=== PATIENT | female | born 1995 | race Caucasian/White ===

== ENCOUNTER 2018-03-06 15:17 | Emergency (ER) | payer OTHER ==
[~2018-03-06] VITALS: Ht 165.1 cm; Wt 68.0 kg
--- NOTE | 2018-03-06 16:07 | RAD ---
EXAM: Right knee, 3 views. HISTORY: Pain. COMPARISON: None. FINDINGS: Real views of the right knee are obtained. There is no fracture, dislocation or subluxation. There is no joint effusion. IMPRESSION: No acute osseous finding. Electronically signed by: Nivia Mohan MD (03/06/2018 4:03 PM) [facility]
--- NOTE | 2018-03-06 16:36 | PHYS DOC ---
Past History Past Medical History: Endometriosis Past Surgical History: No Surgical History Alcohol Use: Occasionally Drug Use: None Adult General Chief Complaint Chief Complaint: LOWER EXT PAIN HPI HPI 22-year-old female presents with right knee pain and concern for STD. 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 While she was there she had a tibial plateau hairline fracture. Since being assigned to the local [employer], she has had pain in the right knee and distal thigh. The pain is a 2/10 before physical training, but gets up to an 8/10 after running. She denies any new injuries. She has been taking ibuprofen 800 for the pain. The patient was told by her spouse that her spouse thought she might have an STD. She would like the patient to be tested as well. The patient has not had an STD in the past. She has never been . She denies fever or chills. She is currently on her menses. The patient has had a change in her vaginal odor and discharge. There is a thicker grayish color. Review of Systems Review of Systems Constitutional: Denies fever or chills [] Eyes: Denies change in visual acuity, redness, or eye pain [] HENT: Denies nasal congestion or sore throat [] Respiratory: Denies cough or shortness of breath [] Cardiovascular: No additional information not addressed in HPI [] GI: Denies abdominal pain, nausea, vomiting, bloody stools or diarrhea [] : Vaginal discharge[] Musculoskeletal: Denies back pain or joint pain [] Integument: Denies rash or skin lesions [] Neurologic: Denies headache, focal weakness or sensory changes [] Endocrine: Denies polyuria or polydipsia [] All other systems were reviewed and found to be within normal limits, except as documented in this note. Current Medications Current Medications Current Medications Medications (Trade) Dose Ordered Sig/Colt Start Time Stop Time Status Last Admin Dose Admin Azithromycin (Zithromax) 1,000 mg 1X ONCE 03/06/18 17:00 03/06/18 17:01 Ceftriaxone Sodium (Rocephin Im) 250 mg 1X ONCE 03/06/18 17:00 03/06/18 17:01 Allergies Allergies Allergies Coded Allergies Type Severity Reaction Last Updated Verified No Known Drug Allergies 03/06/18 No Physical Exam Physical Exam Constitutional: Well developed, well nourished, no acute distress, non-toxic appearance. [] HENT: Normocephalic, atraumatic, bilateral external ears normal, oropharynx moist, no oral exudates, nose normal. [] Eyes: PERRLA, EOMI, conjunctiva normal, no discharge. [] Neck: Normal range of motion, no tenderness, supple, no stridor. [] Cardiovascular:Heart rate regular rhythm, no murmur [] Lungs & Thorax: Bilateral breath sounds clear to auscultation [] Abdomen: Bowel sounds normal, soft, no tenderness, no masses, no pulsatile masses. [] Skin: Warm, dry, no erythema, no rash. [] Back: No tenderness, no CVA tenderness. [] Extremities: No tenderness, no cyanosis, no clubbing, ROM intact, no edema. [] Neurologic: Alert and oriented X 3, normal motor function, normal sensory function, no focal deficits noted. [] Psychologic: Affect normal, judgement normal, mood normal. : shaved pubic hair, normal external exam, thick white to siegel discharge mixed with blood, erythematous cervix.[] Current Patient Data Vital Signs Vital Signs Date Time Temp Pulse Resp B/P (MAP) Pulse Ox O2 Delivery O2 Flow Rate FiO2 03/06/18 15:54 98.8 88 18 100 Room Air EKG EKG [] Radiology/Procedures Radiology/Procedures [] Impressions: EXAM: Right knee, 3 views. HISTORY: Pain. COMPARISON: None. FINDINGS: Real views of the right knee are obtained. There is no fracture, dislocation or subluxation. There is no joint effusion. IMPRESSION: No acute osseous finding. Electronically signed by: Nivia Huerta MD (03/06/2018 4:03 PM) [facility] DICTATED AND SIGNED BY: NIVIA HUERTA MD DATE: 03/06/18 1603 CC: ROMEL PATTON DO; LIDA KIDD DO Course & Med Decision Making Course & Med Decision Making Pertinent Labs and Imaging studies reviewed. (See chart for details) The patient has been treated for chlamydia and gonorrhea with azithromycin and ceftriaxone. The results are pending. Wet prep was negative. Her right knee x- ray is negative. I have advised that she follow-up with her physicians if it continues to have pain. She is stable for discharge at this time [] Dragon Disclaimer Dragon Disclaimer This electronic medical record was generated, in whole or in part, using a voice recognition dictation system. Departure Departure: Referrals: ROMEL PATTON DO (PCP) LIDA KIDD DO Mar 06, 2018 16:36
[2018-03-06 16:43] VITALS: BP 132/90
[2018-03-06] MEDS ORDERED: AZITHROMYCIN 250 MG TABLET. PO ONE (17:00)
[2018-03-06] MEDS ORDERED: cefTRIAXone IM 250 MG VIAL IM ONE (17:00)
[2018-03-07 15:09] LABS: CHLAMYDIA PROBE Negative (Negative)
== END 2018-03-06 17:20 | disposition home or self-care (01) ==
LOC: ER 15:17
DX: A54.03 Gonococcal cervicitis, unspecified (principal); A56.02 Chlamydial vulvovaginitis; M25.561 Pain in right knee
CPT/HCPCS: 36415; 73564; 87491; 87591; 96372; 99285; J0456; J0696; Q0111

== ENCOUNTER 2018-04-05 19:26 | Emergency (ER) | payer OTHER ==
[~2018-04-05] VITALS: Ht 165.1 cm; Wt 68.0 kg
[2018-04-05] MEDS ORDERED: IV NORMAL SALINE 1,000ML 1,000 ML IV ONE (19:45)
--- NOTE | 2018-04-05 19:54 | PHYS DOC ---
Past History Past Medical History: Endometriosis, Other Past Surgical History: Oophorectomy, Other Alcohol Use: Occasionally Drug Use: None Adult General Chief Complaint Chief Complaint: PELVIC PAIN HPI HPI 22-year-old female presents with right lower quadrant abdominal pain. Patient states that the pain started rather suddenly yesterday. She thought that it would go away overnight, but the pain continues today. She believes that it is a bit better today than yesterday. It is a deep cramping pain. She states that laughing, sneezing, and going over bumps is painful. She has a history of ovarian cyst ruptures in the past. She had her left ovary removed due to cyst consultations. She still has her right ovary. She still has her appendix. She denies fever or chills. She has not had any nausea or vomiting. She denies any vaginal discharge. She is just finishing her menses. Review of Systems Review of Systems Constitutional: Denies fever or chills [] Eyes: Denies change in visual acuity, redness, or eye pain [] HENT: Denies nasal congestion or sore throat [] Respiratory: Denies cough or shortness of breath [] Cardiovascular: No additional information not addressed in HPI [] GI: Right lower quadrant abdominal pain[] : Denies dysuria or hematuria [] Musculoskeletal: Denies back pain or joint pain [] Integument: Denies rash or skin lesions [] Neurologic: Denies headache, focal weakness or sensory changes [] Endocrine: Denies polyuria or polydipsia [] All other systems were reviewed and found to be within normal limits, except as documented in this note. Current Medications Current Medications Current Medications Medications (Trade) Dose Ordered Sig/Colt Start Time Stop Time Status Last Admin Dose Admin Info (Do NOT chart on this entry -- for MONITORING) 1 each PRN DAILY PRN 04/05/18 20:00 04/07/18 19:59 Iohexol (Omnipaque 300 Mg/ml) 75 ml 1X ONCE 04/05/18 20:00 04/05/18 20:01 Sodium Chloride 1,000 ml @ 1,000 mls/hr 1X ONCE 04/05/18 19:45 04/05/18 20:44 Allergies Allergies Allergies Coded Allergies Type Severity Reaction Last Updated Verified No Known Drug Allergies 03/06/18 No Physical Exam Physical Exam Constitutional: Well developed, well nourished, no acute distress, non-toxic appearance. [] HENT: Normocephalic, atraumatic, bilateral external ears normal, oropharynx moist, no oral exudates, nose normal. [] Eyes: PERRLA, EOMI, conjunctiva normal, no discharge. [] Neck: Normal range of motion, no tenderness, supple, no stridor. [] Cardiovascular:Heart rate regular rhythm, no murmur [] Lungs & Thorax: Bilateral breath sounds clear to auscultation [] Abdomen: Soft, suprapubic and right lower quadrant abdominal pain with guarding. [] Skin: Warm, dry, no erythema, no rash. [] Back: No tenderness, no CVA tenderness. [] Extremities: No tenderness, no cyanosis, no clubbing, ROM intact, no edema. [] Neurologic: Alert and oriented X 3, normal motor function, normal sensory function, no focal deficits noted. [] Psychologic: Affect normal, judgement normal, mood normal. [] Current Patient Data Vital Signs Vital Signs Date Time Temp Pulse Resp B/P (MAP) Pulse Ox O2 Delivery O2 Flow Rate FiO2 04/05/18 19:38 98.3 85 16 99 Room Air EKG EKG [] Radiology/Procedures Radiology/Procedures [] Impressions: CT study of the abdomen and pelvis with contrast Clinical indications: Sharp stabbing right lower quadrant pain started last night. History of left-sided nephrectomy. TECHNIQUE: After IV infusion of 75 cc of Omnipaque 300, helical CT scanning of the abdomen and pelvis was performed. No GI contrast was administered. This may decrease the sensitivity to detect GI tract pathology. PQRS compliance Statement One or more of the following individualized dose reduction techniques were utilized for this study: 1. Automated exposure control 2. Adjustment of the mA and/or kV according to patient size 3. Use of iterative reconstruction technique FINDINGS: The liver and spleen and pancreas are normal. The gallbladder is small in size which may be due to recent meal. No extra hepatic biliary ductal dilatation is seen. No adrenal mass is evident. Small nonobstructing stones of both kidneys are seen. No hydronephrosis or hydroureter is seen. Urinary bladder is not distended. No uterine mass or fibroid is seen. The endometrial canal measures 11 mm in thickness. The uterus is displaced towards the left side by a thick-walled cyst or fluid-filled collection. It measures 5.7 cm in greatest dimension. The terminal ileum is unremarkable. The appendix is not definitely visualized without GI contrast material but there are no secondary findings of appendicitis. No obstructive bowel pattern is seen. No free fluid or free air or mesenteric edema is seen. No lung base consolidation is evident. No osteolytic process is seen. IMPRESSION: 5.7 cm cystic mass of the right adnexa displacing the uterus towards the left side. Differential considerations include tubo-ovarian abscess or ovarian torsion or hemorrhagic cyst or endometrioma or ectopic . Correlation with test is recommended. Electronically signed by: Melecio Mireles MD (04/05/2018 9:19 PM) [place] [id number] DICTATED AND SIGNED BY: MELECIO MIRELES MD DATE: 04/05/182110 CC: ROMEL PATTON DO; LIDA KIDD DO Transabdominal transvaginal sonography of the pelvis Clinical indications: Right-sided pelvic pain. Cystic mass lesion of the right side of the pelvis seen on CT study performed today. Transabdominal sonography: The uterus is anteverted in position. The longitudinal and AP and transverse dimensions of the uterus are 8.9 cm and 3.4 cm and 4.8 cm respectively. There is a cystic mass of the right adnexa which may represent the right ovary measuring up to 7.7 cm in size. Transvaginal exam will be performed. Color Doppler flow is seen within the ovarian parenchyma around this complex cystic nodule which measures 5.8 cm in size and demonstrates a fluid/fluid level consistent with a hemorrhagic cyst. The left ovary is not identified. Transvaginal exam: The endometrium measures 8 mm in thickness which is normal. No free fluid is seen within the cul-de-sac. Complex cystic mass is identified within the right ovary with similar dimensions. Color Doppler flow as is seen within the thin rim of ovarian parenchyma around the cyst. Small amount of free fluid is seen around the right ovary. The left ovary is not identified consistent with the patient's surgical history of removal of the left ovary. IMPRESSION: 5.8 cm hemorrhagic cyst within the right ovary. Color Doppler flow is seen within the right ovary. Again correlation with test is recommended to exclude an ectopic . Electronically signed by: Melecio Mireles MD (04/05/2018 10:58 PM) [facility] DICTATED AND SIGNED BY: MELECIO MIRELES MD DATE: 04/05/18 0812 CC: ROMEL PATTON DO; LIDA KIDD DO Course & Med Decision Making Course & Med Decision Making Pertinent Labs and Imaging studies reviewed. (See chart for details) The patient's labs are unremarkable. Her urinalysis is negative for infection. Her urine is negative. Her CT scan shows a 5.7 centimeter cystic structure in the right adnexa. The radiologist is concerned for ovarian torsion. I have ordered an ultrasound to rule this out. The patient's ultrasound shows a 5.8 cm hemorrhagic cyst on the right ovary. There is no ovarian torsion. I will recommend that the patient make an appointment with OB this week to discuss management options for this cyst. She is stable for discharge at this time. [] Dragon Disclaimer Dragon Disclaimer This electronic medical record was generated, in whole or in part, using a voice recognition dictation system. Departure Departure: Referrals: ROMEL PATTON DO (PCP) LIDA KIDD DO Apr 05, 2018 19:54
[2018-04-05] MEDS ORDERED: CONTRAST GIVEN MC PRN (20:00)
[2018-04-05] MEDS ORDERED: IOHEXOL 300 MG/ML 75 ML VIAL. IV ONE (20:00)
[2018-04-05 20:34] LABS: BASO % 0 % (0-3); EOS % 1 % (0-3); HEMATOCRIT 40.4 % (36.0-47.0); HEMOGLOBIN 13.6 g/dL (12.0-15.5); LYMPH # 1.3 x10^3/uL (1.0-4.8); LYMPH % 20 % (24-48); MEAN CORPUSCULAR HEMOGLOBIN 30 pg (25-35); MEAN CORPUSCULAR HGB CONC 34 g/dL (31-37); MEAN CORPUSCULAR VOLUME 90 fL (79-100); MONO # 0.6 x10^3/uL (0.0-1.1); MONO % 9 % (0-9); NEUT # 4.3 x10^3uL (1.8-7.7); NEUT % 70 % (31-73); PLATELET COUNT 182 x10^3/uL (140-400); RED BLOOD COUNT 4.49 x10^6/uL (3.50-5.40); RED CELL DISTRIBUTION WIDTH 12.7 % (11.5-14.5); WHITE BLOOD COUNT 6.2 x10^3/uL (4.0-11.0)
[2018-04-05 20:45] LABS: ALBUMIN 3.8 g/dL (3.4-5.0); CALCIUM 8.7 mg/dL (8.5-10.1); CREATININE 0.8 mg/dL (0.6-1.0); GFR 90.5; POTASSIUM 3.6 mmol/L (3.5-5.1); TOTAL BILIRUBIN 0.7 mg/dL (0.2-1.0); TOTAL PROTEIN 7.5 g/dL (6.4-8.2)
[2018-04-05] MEDS: KETOROLAC 30 MG/ML VIAL. IV ONE ×2 (20:45→23:32)
[2018-04-05 20:49] LABS: BACTERIA,URINE 0 /HPF (0-FEW); BILIRUBIN,URINE NEG (NEG); CLARITY,URINE CLEAR; COLOR,URINE YELLOW; GLUCOSE,URINE NEG (NEG); NITRITE,URINE NEG (NEG); UROBILINOGEN,URINE 0.2 mg/dL (0.2 mg/dL)
[2018-04-05 20:50] LABS: SQUAMOUS EPITHELIAL CELL,UR FEW /LPF
--- NOTE | 2018-04-05 21:22 | RAD ---
CT study of the abdomen and pelvis with contrast Clinical indications: Sharp stabbing right lower quadrant pain started last night. History of left-sided nephrectomy. TECHNIQUE: After IV infusion of 75 cc of Omnipaque 300, helical CT scanning of the abdomen and pelvis was performed. No GI contrast was administered. This may decrease the sensitivity to detect GI tract pathology. PQRS compliance Statement One or more of the following individualized dose reduction techniques were utilized for this study: 1. Automated exposure control 2. Adjustment of the mA and/or kV according to patient size 3. Use of iterative reconstruction technique FINDINGS: The liver and spleen and pancreas are normal. The gallbladder is small in size which may be due to recent meal. No extra hepatic biliary ductal dilatation is seen. No adrenal mass is evident. Small nonobstructing stones of both kidneys are seen. No hydronephrosis or hydroureter is seen. Urinary bladder is not distended. No uterine mass or fibroid is seen. The endometrial canal measures 11 mm in thickness. The uterus is displaced towards the left side by a thick-walled cyst or fluid-filled collection. It measures 5.7 cm in greatest dimension. The terminal ileum is unremarkable. The appendix is not definitely visualized without GI contrast material but there are no secondary findings of appendicitis. No obstructive bowel pattern is seen. No free fluid or free air or mesenteric edema is seen. No lung base consolidation is evident. No osteolytic process is seen. IMPRESSION: 5.7 cm cystic mass of the right adnexa displacing the uterus towards the left side. Differential considerations include tubo-ovarian abscess or ovarian torsion or hemorrhagic cyst or endometrioma or ectopic . Correlation with test is recommended. Electronically signed by: Dez Mireles MD (04/05/2018 9:19 PM) [facility] [place]
--- NOTE | 2018-04-05 23:02 | RAD ---
Transabdominal transvaginal sonography of the pelvis Clinical indications: Right-sided pelvic pain. Cystic mass lesion of the right side of the pelvis seen on CT study performed today. Transabdominal sonography: The uterus is anteverted in position. The longitudinal and AP and transverse dimensions of the uterus are 8.9 cm and 3.4 cm and 4.8 cm respectively. There is a cystic mass of the right adnexa which may represent the right ovary measuring up to 7.7 cm in size. Transvaginal exam will be performed. Color Doppler flow is seen within the ovarian parenchyma around this complex cystic nodule which measures 5.8 cm in size and demonstrates a fluid/fluid level consistent with a hemorrhagic cyst. The left ovary is not identified. Transvaginal exam: The endometrium measures 8 mm in thickness which is normal. No free fluid is seen within the cul-de-sac. Complex cystic mass is identified within the right ovary with similar dimensions. Color Doppler flow as is seen within the thin rim of ovarian parenchyma around the cyst. Small amount of free fluid is seen around the right ovary. The left ovary is not identified consistent with the patient's surgical history of removal of the left ovary. IMPRESSION: 5.8 cm hemorrhagic cyst within the right ovary. Color Doppler flow is seen within the right ovary. Again correlation with test is recommended to exclude an ectopic . Electronically signed by: Dez Mireles MD (04/05/2018 10:58 PM) [facility]
[2018-04-05 23:33] VITALS: BP 147/58
== END 2018-04-05 23:38 | disposition home or self-care (01) ==
LOC: ER 19:26
DX: N83.291 Other ovarian cyst, right side (principal); Z90.722 Acquired absence of ovaries, bilateral
CPT/HCPCS: 36415; 74177; 76830; 76856; 80053; 81001; 81025; 85025; 96361; 96374; 99285; J1885; Q9967; 87086; J7030

== ENCOUNTER 2018-07-10 15:50 | Emergency (ER) | payer OTHER ==
[~2018-07-10] VITALS: Ht 165.1 cm; Wt 71.5 kg
--- NOTE | 2018-07-10 16:08 | PHYS DOC ---
Past History Past Medical History: Endometriosis, Other Past Surgical History: Oophorectomy, Other Alcohol Use: Occasionally Drug Use: None Adult General Chief Complaint Chief Complaint: UPPER EXTREMITY PAIN [facility] HPI Patient is a 23-year-old female who presents with complaint of right arm injury. 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 Patient rates pain as being moderate. She states that pain is worsened with palpation. She also states that she had bumped her head but denies loss of consciousness and states that she was wearing a helmet. She denies having had any vomiting. Review of Systems Review of Systems Constitutional: Denies fever or chills [] Respiratory: Denies cough or shortness of breath [] Cardiovascular: No additional information not addressed in HPI [] Musculoskeletal: Positive right forearm pain [] Allergies Allergies Allergies Coded Allergies Type Severity Reaction Last Updated Verified No Known Drug Allergies 07/10/18 No Physical Exam Physical Exam Constitutional: Well developed, well nourished, no acute distress, non-toxic appearance. [] HENT: Head is normocephalic atraumatic Cardiovascular: Regular rate and rhythm, no murmur [] Lungs & Thorax: Bilateral breath sounds clear to auscultation [] Extremities: Right forearm demonstrates tenderness to palpation especially around the mid shaft of ulnar aspect of forearm. [] Neurologic: Alert and oriented X 3, no focal deficits noted. [] EKG EKG [] Radiology/Procedures Radiology/Procedures [] Impressions: X-ray of right forearm demonstrates no acute bony abnormalities Course & Med Decision Making Course & Med Decision Making Pertinent Labs and Imaging studies reviewed. (See chart for details) [] Dragon Disclaimer Dragon Disclaimer This electronic medical record was generated, in whole or in part, using a voice recognition dictation system. Departure Departure: Impression: Primary Impression: Contusion of forearm, right Disposition: 01 HOME, SELF-CARE Condition: STABLE Referrals: ROMEL PATTON DO (PCP) Patient Instructions: Contusion Scripts Naproxen (NAPROSYN) 500 Mg Tablet 1 TAB PO BID PRN for PAIN, #20 TAB Prov: SATISH GILLETTE Jr., DO 07/10/18 Problem Qualifiers Primary Impression: Contusion of forearm, right Encounter type: initial encounter Qualified Codes: S50.11XA - Contusion of right forearm, initial encounter SATISH GILLETTE Jr. DO Jul 10, 2018 16:08
--- NOTE | 2018-07-10 16:39 | RAD ---
Exam performed: 2 views right forearm. HISTORY: Injury today, pain and bruising. DATE OF SERVICE: 07/10/2018. COMPARISON: None available FINDINGS: AP and lateral view of the right forearm is obtained. Normal alignment of the wrist and elbow joint is preserved. There is no acute fracture or dislocation. No soft tissue swelling or foreign body seen. IMPRESSION: Negative exam. Electronically signed by: Ayla Hampton MD (07/10/2018 4:34 PM) [facility]
[2018-07-10] MEDS ORDERED: NAPR-683 PO (16:54)
[2018-07-10 16:59] VITALS: BP 124/79
== END 2018-07-10 17:00 | disposition home or self-care (01) ==
LOC: ER 15:50
DX: S50.11XA Contusion of right forearm, initial encounter (principal); W51.XXXA Accidental striking against or bumped into by another person, initial encounter; Y93.89 Activity, other specified; Y92.89 Other specified places as the place of occurrence of the external cause; Y99.0 Civilian activity done for income or pay
CPT/HCPCS: 73090; 99283

== ENCOUNTER 2018-10-22 17:08 | Emergency (ER) | payer OTHER ==
[~2018-10-22] VITALS: Ht 165.1 cm; Wt 71.5 kg
[~2018-10-22 17:08] MED LIST: NAPR-683 PO
--- NOTE | 2018-10-22 17:40 | ED.ADGEN ---
Past History Past Medical History: Endometriosis, Other Past Surgical History: Other Alcohol Use: Occasionally Drug Use: None Adult General Chief Complaint Chief Complaint ".. I am to get a ovarian cyst removed.. .. they said I can't take anti- inflammatories.. because of surgery.. 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 Pt. denies any trauma. Patient denies specific ill contacts. No recent travel. Patient follows with [facility]. Pt. has scheduled surgery for the ovarian cyst removal on the . Pt. currently wants only pain meds . Refuses labs or x-rays. Review of Systems Review of Systems Constitutional: Denies fever or chills [] Eyes: Denies change in visual acuity, redness, or eye pain [] HENT: Denies nasal congestion or sore throat [] Respiratory: Denies cough or shortness of breath [] Cardiovascular: No additional information not addressed in [facility] [] GI: Complaints of Lt lower abdominal pain,. Denies nausea, vomiting, bloody stools or diarrhea [] : Denies dysuria or hematuria [] Musculoskeletal: Denies back pain or joint pain [] Integument: Denies rash or skin lesions [] Neurologic: Denies headache, focal weakness or sensory changes [] Endocrine: Denies polyuria or polydipsia [] All other systems were reviewed and found to be within normal limits, except as documented in this note. Family History Family History Non-contributory Current Medications Current Medications Current Medications Medications (Trade) Dose Ordered Sig/Colt Start Time Stop Time Status Last Admin Dose Admin Ondansetron HCl (Zofran Odt) 4 mg STK-MED ONCE 10/22/18 18:12 10/22/18 18:20 DC Oxycodone/ Acetaminophen (Percocet 5/325) 1 tab STK-MED ONCE 10/22/18 18:10 10/22/18 18:20 DC Allergies Allergies Allergies Coded Allergies Type Severity Reaction Last Updated Verified No Known Drug Allergies 07/10/18 No Physical Exam Physical Exam Constitutional: Well developed, well nourished, no acute distress, non-toxic appearance. [] HENT: Normocephalic, atraumatic, bilateral external ears normal, oropharynx moist, no oral exudates, nose normal. [] Eyes: PERRLA, EOMI, conjunctiva normal, no discharge. [] Neck: Normal range of motion, no tenderness, supple, no stridor. [] Cardiovascular:Heart rate regular rhythm, no murmur [] Lungs & Thorax: Bilateral breath sounds clear to auscultation [] Abdomen: Bowel sounds normal, soft, Lt lower tenderness, no masses, no pulsatile masses. [] Mild rebound to lt lower. Declines pelvic or rectal exam at this time. Skin: Warm, dry, no erythema, no rash. [] Back: No tenderness, no CVA tenderness. [] Extremities: No tenderness, no cyanosis, no clubbing, ROM intact, no edema. [] No true psoas sign. Neurologic: Alert and oriented X 3, normal motor function, normal sensory function, no focal deficits noted. [] Psychologic: Affect anxious, judgement normal, mood normal. [] Current Patient Data Vital Signs Vital Signs Date Time Temp Pulse Resp B/P (MAP) Pulse Ox O2 Delivery O2 Flow Rate FiO2 10/22/18 18:20 96 18 109/70 (83) 98 Room Air 10/22/18 17:20 97.9 Lab Results Laboratory Tests Test 10/22/18 17:51 10/22/18 17:58 Urine Collection Type Unknown Urine Color Yellow Urine Clarity Cloudy Urine pH 6.5 Urine Specific [place] 1.020 Urine Protein Neg (NEG-TRACE) Urine Glucose (UA) Neg mg/dL (NEG) Urine Ketones (Stick) Neg mg/dL (NEG) Urine Blood Neg (NEG) Urine Nitrite Neg (NEG) Urine Bilirubin Neg (NEG) Urine Urobilinogen Dipstick 0.2 mg/dL (0.2 mg/dL) Urine Leukocyte Esterase Neg (NEG) Urine RBC 0 /HPF (0-2) Urine WBC 0 /HPF (0-4) Urine Squamous Epithelial Cells Occ /LPF Urine Bacteria Few /HPF (0-FEW) Urine Mucus Slight /LPF Urine Sperm Present /HPF POC Urine HCG, Qualitative hcg negative (Negative) EKG EKG [] Radiology/Procedures Radiology/Procedures Refuses CT or Abd. films.[] Course & Med Decision Making Course & Med Decision Making Pertinent Labs and Imaging studies reviewed. (See chart for details) Pt. to follow up at [place] and scheduled surgery. Pt. to return if any concerns or increased pain. [] Final Impression Final Impression 1. Abdomen Pain[] 2. Hx. of Ovarian Cyst Dragon Disclaimer Dragon Disclaimer This electronic medical record was generated, in whole or in part, using a voice recognition dictation system. Discharge Summary Visit Information Final Diagnosis Problems Medical Problems: (1) Ovarian cyst Status: Acute (2) Pain in the abdomen Status: Acute Brief Hospital Course Allergies Allergies Coded Allergies Type Severity Reaction Last Updated Verified No Known Drug Allergies 07/10/18 No Vital Signs Vital Signs Date Time Temp Pulse Resp B/P (MAP) Pulse Ox O2 Delivery O2 Flow Rate FiO2 10/22/18 18:20 96 18 109/70 (83) 98 Room Air 10/22/18 17:20 97.9 Lab Results Laboratory Tests Test 10/22/18 17:51 10/22/18 17:58 Urine Collection Type Unknown Urine Color Yellow Urine Clarity Cloudy Urine pH 6.5 Urine Specific [place] 1.020 Urine Protein Neg (NEG-TRACE) Urine Glucose (UA) Neg mg/dL (NEG) Urine Ketones (Stick) Neg mg/dL (NEG) Urine Blood Neg (NEG) Urine Nitrite Neg (NEG) Urine Bilirubin Neg (NEG) Urine Urobilinogen Dipstick 0.2 mg/dL (0.2 mg/dL) Urine Leukocyte Esterase Neg (NEG) Urine RBC 0 /HPF (0-2) Urine WBC 0 /HPF (0-4) Urine Squamous Epithelial Cells Occ /LPF Urine Bacteria Few /HPF (0-FEW) Urine Mucus Slight /LPF Urine Sperm Present /HPF Bedside Urine HCG, Qualitative hcg negative (Negative) Brief Hospital Course 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 Ovarian Cyst. Discharge Information Condition at Discharge: Improved, Stable Disposition/Orders: D/C to Home Dischare Medications Current Medications Oxycodone/ Acetaminophen (Percocet 5/325) 2 tab 1X ONCE PO Last administered on 10/22/18at 18:11; Admin Dose 2 TAB; Start 10/22/18 at 18:00; Stop 10/22/18 at 18:20; Status DC Ondansetron HCl (Zofran Odt) 8 mg 1X ONCE PO Last administered on 10/22/18at 18:11; Admin Dose 8 MG; Start 10/22/18 at 18:00; Stop 10/22/18 at 18:20; Status DC Oxycodone/ Acetaminophen (Percocet 5/325) 1 tab STK-MED ONCE .ROUTE ; Start 10/22/18 at 18:08; Stop 10/22/18 at 18:20; Status DC Oxycodone/ Acetaminophen (Percocet 5/325) 1 tab STK-MED ONCE .ROUTE ; Start 10/22/18 at 18:10; Stop 10/22/18 at 18:20; Status DC Ondansetron HCl (Zofran Odt) 4 mg STK-MED ONCE .ROUTE ; Start 10/22/18 at 18:08; Stop 10/22/18 at 18:20; Status DC Ondansetron HCl (Zofran Odt) 4 mg STK-MED ONCE .ROUTE ; Start 10/22/18 at 18:12; Stop 10/22/18 at 18:20; Status DC Active Scripts Active Zofran (Ondansetron Hcl) 8 Mg Tablet 8 Mg PO QIDP Percocet 5-325 Mg Tablet (Oxycodone Hcl/Acetaminophen) 1 Each Tablet 1-2 Tab PO PRN Q6HRS PRN Naprosyn (Naproxen) 500 Mg Tablet 1 Tab PO BID PRN Dragon Disclaimer This chart was dictated in whole or in part using Voice Recognition software in a busy, high-work load, and often noisy Emergency Department environment. It may contain unintended and wholly unrecognized errors or omissions. MILAN MARIN MD October 22, 2018 17:40
[2018-10-22] MEDS ORDERED: OXYC1TAB15 PO (17:52)
[2018-10-22] MEDS ORDERED: ONDA8TAB9 PO (17:58)
[2018-10-22] MEDS ORDERED: oxyCODONE/APAP 5/325 1 TAB TABLET PO ONE (18:00)
[2018-10-22] MEDS ORDERED: ONDANSETRON ODT 4 MG TAB.RAPDIS PO ONE (18:00)
[2018-10-22] MEDS ORDERED: oxyCODONE/APAP 5/325 1 TAB TABLET ONE ×2 (18:08→18:10)
[2018-10-22] MEDS ORDERED: ONDANSETRON ODT 4 MG TAB.RAPDIS ONE ×2 (18:08→18:12)
[2018-10-22 18:20] VITALS: BP 109/70
[2018-10-22 18:23] LABS: BACTERIA,URINE FEW /HPF (0-FEW); BILIRUBIN,URINE NEG (NEG); CLARITY,URINE CLOUDY; COLOR,URINE YELLOW; GLUCOSE,URINE NEG (NEG); NITRITE,URINE NEG (NEG); RBC,URINE 0 /HPF (0-2); SPERM,URINE PRESENT /HPF; SQUAMOUS EPITHELIAL CELL,UR OCC /LPF; UROBILINOGEN,URINE 0.2 mg/dL (0.2 mg/dL); WBC,URINE 0 /HPF (0-4)
== END 2018-10-22 18:20 | disposition home or self-care (01) ==
LOC: ER 17:08
DX: N83.202 Unspecified ovarian cyst, left side (principal)
CPT/HCPCS: 81001; 81025; 99283; Q0162

== ENCOUNTER 2018-12-30 20:08 | Emergency (ER) | payer OTHER ==
[~2018-12-30] VITALS: Ht 165.1 cm; Wt 63.5 kg
[~2018-12-30 20:08] MED LIST changes: +ONDA8TAB9 PO; +OXYC1TAB15 PO
[2018-12-30 20:22] VITALS: BP 126/84
--- NOTE | 2018-12-30 20:38 | PHYS DOC ---
Past History Past Medical History: No Pertinent History, Endometriosis, Other Past Surgical History: Other Additional Past Surgical Histo: ovarian cyst surgery Smoking: Cigarettes, Less than 1pk/day Alcohol Use: Occasionally Drug Use: None Adult General Chief Complaint Chief Complaint: PAIN ON URINATION HPI HPI Patient is a 23-year-old female presents complaining of discomfort with urination for the past 4 days. This has been getting worse over time. No blood in the urine. No fever. Was seen at [facility] yesterday but does not have th e results and was not started on any treatment for the dysuria. This is like previous urinary tract infections. No back or flank pain. Patient had recent surgery for an ovarian cyst in October. She had an IUD placed at that time. She had continuous vaginal bleeding after the IUD was placed. IUD was removed on December 12, 2018 and has not had a menstrual cycle since that time.[] Review of Systems Review of Systems Constitutional: Denies fever or chills [] Eyes: Denies change in visual acuity, redness, or eye pain [] HENT: Denies nasal congestion or sore throat [] Respiratory: Denies cough or shortness of breath [] Cardiovascular: No chest pain or palpitations[] GI: Denies abdominal pain, nausea, vomiting, bloody stools or diarrhea [] : See history of present illness[] Musculoskeletal: Denies back pain or joint pain [] Integument: Denies rash or skin lesions [] Neurologic: Denies headache, focal weakness or sensory changes [] Endocrine: Denies polyuria or polydipsia [] All other systems were reviewed and found to be within normal limits, except as documented in this note. Allergies Allergies Allergies Coded Allergies Type Severity Reaction Last Updated Verified No Known Drug Allergies 07/10/18 No Physical Exam Physical Exam Constitutional: Well developed, well nourished, no acute distress, non-toxic appearance. [] HENT: Normocephalic, atraumatic, bilateral external ears normal, oropharynx moist, no oral exudates, nose normal. [] Eyes: PERRLA, EOMI, conjunctiva normal, no discharge. [] Neck: Normal range of motion, no tenderness, supple, no stridor. [] Cardiovascular:Heart rate regular rhythm, no murmur [] Lungs & Thorax: Bilateral breath sounds clear to auscultation [] Abdomen: Bowel sounds normal, soft, no tenderness, no masses, no pulsatile masses. [] Skin: Warm, dry, no erythema, no rash. [] Back: No tenderness, no CVA tenderness. [] Extremities: No tenderness, no cyanosis, no clubbing, ROM intact, no edema. [] Neurologic: Alert and oriented X 3, normal motor function, normal sensory function, no focal deficits noted. [] Psychologic: Affect normal, judgement normal, mood normal. [] EKG EKG [] Radiology/Procedures Radiology/Procedures [] Course & Med Decision Making Course & Med Decision Making Pertinent Labs and Imaging studies reviewed. (See chart for details) Medical decision making: Patient appears to have urinary tract infection. We'll start her on antibiotics and pain medicine. There is no evidence of systemic toxicity, no pyelonephritis, no oral intake intolerance. Discussed findings and plan with patient who voiced understanding. She was discharged in improved condition.[] Dragon Disclaimer Dragon Disclaimer This electronic medical record was generated, in whole or in part, using a voice recognition dictation system. Departure Departure: Impression: Primary Impression: Urinary tract infection Disposition: HOME, SELF-CARE Condition: IMPROVED Referrals: ROMEL PATTON DO (PCP) Follow-up in 2 days Patient Instructions: Urinary Tract Infection Additional Instructions: Drink plenty of fluids. Follow-up with your regular doctor in 2 days. Add cranberry juice to your diet, both now, as well as in between episodes to help prevent future urinary tract infections. Return to the ER if you develop a fever of more than 101�, unable to tolerate medicines, or any other concerns. Scripts Phenazopyridine Hcl (PYRIDIUM) 200 Mg Tablet 200 MG PO TID for dysuria for 2 Days, #6 TAB Prov: MICAH CHAMBERS DO 12/30/18 Cephalexin (KEFLEX) 500 Mg Capsule 500 MG PO TID for uti for 10 Days, #30 CAP Prov: MICAH CHAMBERS DO 12/30/18 Problem Qualifiers Primary Impression: Urinary tract infection Urinary tract infection type: site unspecified Hematuria presence: without hematuria Qualified Codes: N39.0 - Urinary tract infection, site not specified MICAH CHAMBERS DO Dec 30, 2018 20:38
[2018-12-30 21:36] LABS: BACTERIA,URINE FEW /HPF (0-FEW); BILIRUBIN,URINE NEG (NEG); CLARITY,URINE HAZY; COLOR,URINE YELLOW; GLUCOSE,URINE NEG (NEG); NITRITE,URINE NEG (NEG); RBC,URINE 0 /HPF (0-2); SQUAMOUS EPITHELIAL CELL,UR OCC /LPF; UROBILINOGEN,URINE 0.2 mg/dL (0.2 mg/dL); WBC,URINE 20-40 /HPF (0-4)
[2018-12-30 21:38] LABS: U PREG PATIENT NEGATIVE (NEG)
[2018-12-30] MEDS ORDERED: PHEN-318 PO (21:52)
[2018-12-30] MEDS ORDERED: CEPH-264 PO (21:52)
[2018-12-30] MEDS ORDERED: PHENAZOPYRIDINE 200 MG TABLET. PO ONE (22:00)
[2018-12-30] MEDS ORDERED: CEPHALEXIN 250 MG CAPSULE PO ONE (22:00)
== END 2018-12-30 22:03 | disposition home or self-care (01) ==
LOC: ER 20:08
DX: N39.0 Urinary tract infection, site not specified (principal); F17.210 Nicotine dependence, cigarettes, uncomplicated
CPT/HCPCS: 81001; 81025; 87086; 99284

== ENCOUNTER 2019-02-11 18:56 | Emergency (ER) | payer OTHER ==
[~2019-02-11] VITALS: Ht 165.1 cm; Wt 71.5 kg
[~2019-02-11 18:56] MED LIST changes: +CEPH-264 PO; +PHEN-318 PO
--- NOTE | 2019-02-11 19:07 | ED.ADGEN ---
Past History Past Medical History: No Pertinent History, Cancer, Endometriosis, Other Past Surgical History: Other Additional Past Surgical Histo: ovarian cyst surgery Smoking: Cigarettes, Less than 1pk/day Alcohol Use: Occasionally Drug Use: None Adult General Chief Complaint Chief Complaint ".. I got a discharge and some cramping.. 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 Patient has history of right ovarian cyst that required surgery on October 28. She has a history of endometriosis. This is her first . History of 5 lifetime sexual partners. Patient follows with KATYA Roblero. 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 No history of trauma. Review of Systems Review of Systems Constitutional: Denies fever or chills [] Eyes: Denies change in visual acuity, redness, or eye pain [] HENT: Denies nasal congestion or sore throat [] Respiratory: Denies cough or shortness of breath [] Cardiovascular: No additional information not addressed in HPI [] GI: Complaints of abdominal pain, nausea. Complains of vaginal discharge. Denies, vomiting, bloody stools or diarrhea [] : Denies dysuria or hematuria [] Musculoskeletal: Denies back pain or joint pain [] Integument: Denies rash or skin lesions [] Neurologic: Denies headache, focal weakness or sensory changes [] Endocrine: Denies polyuria or polydipsia [] All other systems were reviewed and found to be within normal limits, except as documented in this note. Family History Family History Noncontributory Current Medications Current Medications Current Medications Medications (Trade) Dose Ordered Sig/Colt Start Time Stop Time Status Last Admin Dose Admin Cephalexin HCl (Keflex) 500 mg 1X ONCE 02/11/19 22:00 02/11/19 22:01 DC 02/11/19 22:02 500 MG Fluconazole (Diflucan) 100 mg 1X ONCE 02/11/19 22:00 02/11/19 22:01 DC 02/11/19 22:02 100 MG Lactated Ringer's 1,000 ml @ 1,000 mls/hr Q1H 02/11/19 19:09 02/11/19 20:08 DC Allergies Allergies Allergies Coded Allergies Type Severity Reaction Last Updated Verified No Known Drug Allergies 07/10/18 No Physical Exam Physical Exam Constitutional: Well developed, well nourished, no acute distress, non-toxic appearance. [] HENT: Normocephalic, atraumatic, bilateral external ears normal, oropharynx moist, no oral exudates, nose normal. [] Eyes: PERRLA, EOMI, conjunctiva normal, no discharge. [] Neck: Normal range of motion, no tenderness, supple, no stridor. [] Cardiovascular:Heart rate regular rhythm, no murmur [] Lungs & Thorax: Bilateral breath sounds clear to auscultation [] Abdomen: Bowel sounds normal, soft, no tenderness, no masses, no pulsatile masses. [] Old surgery scar. Vaginal discharge. No cervical motion tenderness. Skin: Warm, dry, no erythema, no rash. [] Back: No tenderness, no CVA tenderness. [] Extremities: No tenderness, no cyanosis, no clubbing, ROM intact, no edema. [] Neurologic: Alert and oriented X 3, normal motor function, normal sensory fu nction, no focal deficits noted. [] Psychologic: Affect anxious, judgement normal, mood normal. [] Current Patient Data Vital Signs Vital Signs Date Time Temp Pulse Resp B/P (MAP) Pulse Ox O2 Delivery O2 Flow Rate FiO2 02/11/19 19:48 98.6 72 16 100 Room Air Lab Results Laboratory Tests Test 02/11/19 19:23 02/11/19 19:42 Urine Collection Type Unknown Urine Color Straw Urine Clarity Clear Urine pH 7.0 Urine Specific [place] 1.010 Urine Protein Neg (NEG-TRACE) Urine Glucose (UA) Neg mg/dL (NEG) Urine Ketones (Stick) Neg mg/dL (NEG) Urine Blood Neg (NEG) Urine Nitrite Neg (NEG) Urine Bilirubin Neg (NEG) Urine Urobilinogen Dipstick 0.2 mg/dL (0.2 mg/dL) Urine Leukocyte Esterase Mod (NEG) Urine RBC Rare /HPF (0-2) Urine WBC 11-20 /HPF (0-4) Urine Squamous Epithelial Cells Many /LPF Urine Bacteria Few /HPF (0-FEW) Urine Yeast Present /HPF POC Urine HCG, Qualitative hcg positive (Negative) Microbiology 02/11/19 Wet Prep - Final, Complete Microbiology 02/11/19 Wet Prep - Final, Complete EKG EKG [] Radiology/Procedures Radiology/Procedures Sounds shows intrauterine approximately 8 weeks 6 days. Estimated delivery date will be 09/17/2019[] Course & Med Decision Making Course & Med Decision Making Pertinent Labs and Imaging studies reviewed. (See chart for details) Pt. refusing labs currently at 2012 hrs. Patient to follow-up cultures. Patient advised to keep follow-up primary care. Patient take vitamin. She encouraged to continue to not restart her tobacco use. [] Final Impression Final Impression 1. Vaginal discharge[] 2. UTI- bacteria and yeast Dragon Disclaimer Dragon Disclaimer This electronic medical record was generated, in whole or in part, using a voice recognition dictation system. Dragon Disclaimer This chart was dictated in whole or in part using Voice Recognition software in a busy, high-work load, and often noisy Emergency Department environment. It may contain unintended and wholly unrecognized errors or omissions. MILAN MARIN MD Feb 11, 2019 19:07
[2019-02-11] MEDS ORDERED: IV RINGERS SOLUTION,LACTATED 1,000 ML IV SCH (19:09)
[2019-02-11 19:48] LABS: BILIRUBIN,URINE NEG (NEG); CLARITY,URINE CLEAR; COLOR,URINE STRAW; GLUCOSE,URINE NEG (NEG)
[2019-02-11 19:49] LABS: BACTERIA,URINE FEW /HPF (0-FEW); NITRITE,URINE NEG (NEG); RBC,URINE RARE /HPF (0-2); SQUAMOUS EPITHELIAL CELL,UR MANY /LPF; UROBILINOGEN,URINE 0.2 mg/dL (0.2 mg/dL); YEAST,URINE PRESENT /HPF
--- NOTE | 2019-02-11 21:22 | RAD ---
OB ultrasound less than 14 weeks 02/11/2019 CLINICAL HISTORY: First trimester with possible vaginal bleeding. TECHNIQUE: A real-time ultrasound examination of the gravid uterus was performed. Multiple images were obtained. FINDINGS: A gestational sac is seen within the endometrial canal within the body/fundus of the uterus. Within this gestational sac an embryonic pole is seen. The CRL of this embryonic pole measures 2.21 cm. This corresponds to an estimated gestational age by ultrasound 8 weeks 6 days plus or minus standard deviation of 5 days. Embryonic cardiac activity is seen with a heart rate of 171 beats per minutes. The placenta appears to be developing posteriorly. The amniotic fluid volume is within normal limits. A hypoechoic area is seen posterior and lateral to the right aspect of the gestational sac which measures 2.2 cm in size. This likely represents an area of subchorionic hemorrhage. The uterus is otherwise within normal limits. The maternal cervix is closed. It measures 4.41 cm. The right ovary is normal in size. Measures 3.1 x 3.2 x 1.4 cm in size. A 2 cm corpus luteum is seen involving the right ovary. The patient is post left oophorectomy. No free fluid is seen. IMPRESSION: Single living IUP with an estimated gestational age by ultrasound of 8 weeks 6 days plus or minus a standard deviation of 5 days. The estimated date of delivery by ultrasound is 09/17/2019. Electronically signed by: Seb Benjamin MD (02/11/2019 9:19 PM) [facility]
[2019-02-11] MEDS ORDERED: FLUC100T7 PO (21:42)
[2019-02-11] MEDS ORDERED: CEPH-264 PO (21:42)
[2019-02-11 21:59] VITALS: BP 110/64
[2019-02-11] MEDS ORDERED: FLUCONAZOLE 100 MG TABLET. PO ONE (22:00)
[2019-02-11] MEDS ORDERED: CEPHALEXIN 250 MG CAPSULE PO ONE (22:00)
[2019-02-13 18:07] LABS: CHLAMYDIA PROBE Negative (Negative)
== END 2019-02-11 22:04 | disposition home or self-care (01) ==
LOC: ER 18:56
DX: O23.41 Unspecified infection of urinary tract in pregnancy, first trimester (principal); B96.89 Other specified bacterial agents as the cause of diseases classified elsewhere; O98.811 Other maternal infectious and parasitic diseases complicating pregnancy, first trimester; B37.9 Candidiasis, unspecified; O99.331 Smoking (tobacco) complicating pregnancy, first trimester; Z3A.09 9 weeks gestation of pregnancy
CPT/HCPCS: 76801; 81001; 81025; 87086; 87491; 87591; 99285; Q0111

== ENCOUNTER 2019-04-19 12:10 | Emergency (ER) | payer OTHER ==
[~2019-04-19] VITALS: Ht 165.1 cm; Wt 65.0 kg
[~2019-04-19 12:10] MED LIST changes: +FLUC100T7 PO
[2019-04-19 13:28] LABS: BASO % 0 % (0-3); EOS % 1 % (0-3); HEMATOCRIT 34.7 % (36.0-47.0); HEMOGLOBIN 11.6 g/dL (12.0-15.5); LYMPH # 1.1 x10^3/uL (1.0-4.8); LYMPH % 17 % (24-48); MEAN CORPUSCULAR HEMOGLOBIN 30 pg (25-35); MEAN CORPUSCULAR HGB CONC 33 g/dL (31-37); MEAN CORPUSCULAR VOLUME 89 fL (79-100); MONO # 0.5 x10^3/uL (0.0-1.1); MONO % 8 % (0-9); NEUT # 4.6 x10^3uL (1.8-7.7); NEUT % 74 % (31-73); PLATELET COUNT 191 x10^3/uL (140-400); RED CELL DISTRIBUTION WIDTH 13.8 % (11.5-14.5); WHITE BLOOD COUNT 6.3 x10^3/uL (4.0-11.0)
[2019-04-19 13:39] LABS: ALBUMIN/GLOBULIN RATIO 0.9 (1.0-1.7); CALCIUM 8.2 mg/dL (8.5-10.1); CREATININE 0.6 mg/dL (0.6-1.0); POTASSIUM 3.3 mmol/L (3.5-5.1); TOTAL BILIRUBIN 0.2 mg/dL (0.2-1.0); TOTAL PROTEIN 6.4 g/dL (6.4-8.2)
[2019-04-19 13:41] LABS: AMORPHOUS SEDIMENT,UR PRESENT /HPF; BACTERIA,URINE FEW /HPF (0-FEW); BILIRUBIN,URINE NEG (NEG); CLARITY,URINE TURBID; COLOR,URINE YELLOW; GLUCOSE,URINE NEG (NEG); NITRITE,URINE NEG (NEG); SQUAMOUS EPITHELIAL CELL,UR MOD /LPF; UROBILINOGEN,URINE 0.2 mg/dL (0.2 mg/dL)
--- NOTE | 2019-04-19 14:02 | PHYS DOC ---
Past History Past Medical History: No Pertinent History, Cancer, Endometriosis, Other Past Surgical History: Other Additional Past Surgical Histo: ovarian cyst surgery Smoking: Cigarettes, Less than 1pk/day Alcohol Use: Occasionally Drug Use: None Adult General Chief Complaint Chief Complaint: VAGINAL BLEEDING HPI HPI 23-year-old female approximately 19 weeks presents today with some lower abdominal cramping and some vaginal spotting. She states that the pain initially was in her flank and now it's in her lower abdomen. She denies any heavy bleeding. She denies any fever chills or sweats. She has not had any nausea or vomiting.[] Review of Systems Review of Systems Constitutional: Denies fever or chills [] Eyes: Denies change in visual acuity, redness, or eye pain [] HENT: Denies nasal congestion or sore throat [] Respiratory: Denies cough or shortness of breath [] Cardiovascular: No additional information not addressed in HPI [] GI: Denies abdominal pain, nausea, vomiting, bloody stools or diarrhea [] : Per history of present illness] Musculoskeletal: Denies back pain or joint pain [] Integument: Denies rash or skin lesions [] Neurologic: Denies headache, focal weakness or sensory changes [] Endocrine: Denies polyuria or polydipsia [] All other systems were reviewed and found to be within normal limits, except as documented in this note. Allergies Allergies Allergies Coded Allergies Type Severity Reaction Last Updated Verified No Known Drug Allergies 07/10/18 No Physical Exam Physical Exam Constitutional: Well developed, well nourished, no acute distress, non-toxic appearance. [] HENT: Normocephalic, atraumatic, bilateral external ears normal, oropharynx moist, no oral exudates, nose normal. [] Eyes: PERRLA, EOMI, conjunctiva normal, no discharge. [] Neck: Normal range of motion, no tenderness, supple, no stridor. [] Cardiovascular:Heart rate regular rhythm, no murmur [] Lungs & Thorax: Bilateral breath sounds clear to auscultation [] Abdomen: Bowel sounds normal, soft, no tenderness, no masses, no pulsatile mas ses. [] Skin: Warm, dry, no erythema, no rash. [] Back: No tenderness, no CVA tenderness. [] Extremities: No tenderness, no cyanosis, no clubbing, ROM intact, no edema. [] Neurologic: Alert and oriented X 3, normal motor function, normal sensory function, no focal deficits noted. [] Psychologic: Affect normal, judgement normal, mood normal. [] Current Patient Data Lab Results Laboratory Tests Test 04/19/19 12:50 04/19/19 13:08 Urine Collection Type Unknown Urine Color Yellow Urine Clarity Turbid Urine pH 7.0 Urine Specific [place] 1.020 Urine Protein Neg (NEG-TRACE) Urine Glucose (UA) Neg mg/dL (NEG) Urine Ketones (Stick) Neg mg/dL (NEG) Urine Blood Trace (NEG) Urine Nitrite Neg (NEG) Urine Bilirubin Neg (NEG) Urine Urobilinogen Dipstick 0.2 mg/dL (0.2 mg/dL) Urine Leukocyte Esterase Neg (NEG) Urine RBC 3-5 /HPF (0-2) Urine WBC 1-4 /HPF (0-4) Urine Squamous Epithelial Cells Mod /LPF Urine Transitional Epithelial Cells Occ /LPF Urine Amorphous Sediment Present /HPF Urine Bacteria Few /HPF (0-FEW) Urine Mucus Slight /LPF White Blood Count 6.3 x10^3/uL (4.0-11.0) Red Blood Count 3.90 x10^6/uL (3.50-5.40) Hemoglobin 11.6 g/dL (12.0-15.5) L Hematocrit 34.7 % (36.0-47.0) L Mean Corpuscular Volume 89 fL (79-100) Mean Corpuscular Hemoglobin 30 pg (25-35) Mean Corpuscular Hemoglobin Concent 33 g/dL (31-37) Red Cell Distribution Width 13.8 % (11.5-14.5) Platelet Count 191 x10^3/uL (140-400) Neutrophils (%) (Auto) 74 % (31-73) H Lymphocytes (%) (Auto) 17 % (24-48) L Monocytes (%) (Auto) 8 % (0-9) Eosinophils (%) (Auto) 1 % (0-3) Basophils (%) (Auto) 0 % (0-3) Neutrophils # (Auto) 4.6 x10^3uL (1.8-7.7) Lymphocytes # (Auto) 1.1 x10^3/uL (1.0-4.8) Monocytes # (Auto) 0.5 x10^3/uL (0.0-1.1) Eosinophils # (Auto) 0.0 x10^3/uL (0.0-0.7) Basophils # (Auto) 0.0 x10^3/uL (0.0-0.2) Sodium Level 140 mmol/L (136-145) Potassium Level 3.3 mmol/L (3.5-5.1) L Chloride Level 105 mmol/L (98-107) Carbon Dioxide Level 26 mmol/L (21-32) Anion Gap 9 (6-14) Blood Urea Nitrogen 6 mg/dL (7-20) L Creatinine 0.6 mg/dL (0.6-1.0) Estimated GFR (Cockcroft-Gault) 125.0 BUN/Creatinine Ratio 10 (6-20) Glucose Level 82 mg/dL (70-99) Calcium Level 8.2 mg/dL (8.5-10.1) L Total Bilirubin 0.2 mg/dL (0.2-1.0) Aspartate Amino Transferase (AST) 16 U/L (15-37) Alanine Aminotransferase (ALT) 14 U/L (14-59) Alkaline Phosphatase 55 U/L (46-116) Total Protein 6.4 g/dL (6.4-8.2) Albumin 3.0 g/dL (3.4-5.0) L Albumin/Globulin Ratio 0.9 (1.0-1.7) L EKG EKG [] Radiology/Procedures Radiology/Procedures [] Impressions: PROCEDURE: PREG MORE THAN OR EQ TO 14 WKS Exam ordered OB sonogram second semester. HISTORY: Abdominal cramping and spotting, patient is 19 weeks DATE OF SERVICE: 04/19/2019. COMPARISON: None available TECHNIQUE: Transabdominal FINDINGS: Single intrauterine fetus is seen in cephalic presentation. The maturity is as follows. BPD 4.34 cm 19 weeks 1 day Head circumference 15.77 cm 18 weeks 5 days Abdominal circumference 12.87cm 18 weeks 3 days Femur length 2.74 cm 18 weeks 3 days HC to AC ratio is 1.23. Estimated weight is 240 grams. The composite maturity is 18 weeks and 5 days with a sonographic EDC of 09/15/2019 There is adequate amniotic fluid volume. Cervical length measures 4.2 cm . heart rate measures 141 beats per minute. IMPRESSION: Single intrauterine fetus of maturity 15 weeks and 5 days without definite abnormality. Course & Med Decision Making Course & Med Decision Making Pertinent Labs and Imaging studies reviewed. (See chart for details) [ED course: Evaluation reveals a 23-year-old female who is 16-19 weeks . She was very implicit that she did not want anyone doing a vaginal exam on her today. She knows her blood type is A+. She had no further episodes of bleeding in the department.] Dragon Disclaimer Dragon Disclaimer This electronic medical record was generated, in whole or in part, using a voice recognition dictation system. Departure Departure: Impression: Primary Impression: Abdominal pain affecting Disposition: HOME, SELF-CARE Condition: STABLE Referrals: PCP,UNKNOWN (PCP) Patient Instructions: Abdominal Pain During Additional Instructions: Follow with your OB doctor this week for recheck. Return to the emergency department with any new or concerning symptoms Scripts Nitrofurantoin Monohyd/M-Cryst (MACROBID 100 MG CAPSULE) 100 Mg Capsule 1 CAP PO BID for UTI, #10 CAP Prov: AMELIA BECKER DO 04/19/19 AMELIA BECKER DO Apr 19, 2019 14:02
[2019-04-19 14:05] VITALS: BP 108/65
--- NOTE | 2019-04-19 14:26 | RAD ---
Exam ordered OB sonogram second semester. HISTORY: Abdominal cramping and spotting, patient is 19 weeks DATE OF SERVICE: 04/19/2019. COMPARISON: None available TECHNIQUE: Transabdominal FINDINGS: Single intrauterine fetus is seen in cephalic presentation. The maturity is as follows. BPD 4.34 cm 19 weeks 1 day Head circumference 15.77 cm 18 weeks 5 days Abdominal circumference 12.87cm 18 weeks 3 days Femur length 2.74 cm 18 weeks 3 days HC to AC ratio is 1.23. Estimated weight is 240 grams. The composite maturity is 18 weeks and 5 days with a sonographic EDC of 09/15/2019 There is adequate amniotic fluid volume. Cervical length measures 4.2 cm . heart rate measures 141 beats per minute. IMPRESSION: Single intrauterine fetus of maturity 15 weeks and 5 days without definite abnormality. Electronically signed by: Ayla Hampton MD (04/19/2019 2:23 PM) [facility]
[2019-04-19] MEDS ORDERED: NITR100C62 PO (15:04)
== END 2019-04-19 15:20 | disposition home or self-care (01) ==
LOC: ER 12:10
DX: O26.892 Other specified pregnancy related conditions, second trimester (principal); R10.30 Lower abdominal pain, unspecified; O99.332 Smoking (tobacco) complicating pregnancy, second trimester; Z3A.15 15 weeks gestation of pregnancy
CPT/HCPCS: 36415; 76805; 80053; 81001; 84702; 85025; 99285-25

== ENCOUNTER 2019-05-21 17:00 | Emergency (ER) | payer OTHER ==
[~2019-05-21 17:00] MED LIST changes: +NITR100C62 PO
[2019-05-21] MEDS: IV DEXTROSE 5% - 0.9 % NACL 1,000 ML IV ONE (17:30)
--- NOTE | 2019-05-21 17:40 | PHYS DOC ---
Past History Past Medical History: Endometriosis, Other Additional Past Medical Histor: PCOS (MICAH CHAMBERS DO) Past Surgical History: Cancer Surgery, Oophorectomy Additional Past Surgical Histo: CA removed from leg; wisdom teeth removed (MICAH CHAMBERS DO) Smoking: Cigarettes, Less than 1pk/day Alcohol Use: None Drug Use: None (MICAH CHAMBERS DO) Adult General Chief Complaint Chief Complaint: NAUSEA/VOMITING/DIARRHEA HPI HPI Patient is a 24-year-old female presents complaining of nausea, vomiting, and diarrhea. This started at approximately 9:00 this morning. No blood in the stool or emesis. No recent travel. Patient's partner reports that the steak from [facility] last night looked more pink than was expected. Partner did not get sick with the same meal. Patient is approximately 23 weeks with her first . There is no vaginal bleeding or discharge. There is diffuse crampy abdominal pain. Has seen at an urgent care, had a flu test run that was negative. Patient did receive the flu vaccination this season. Patient's surgical history is significant for an ovarian cyst being removed on the right in October 2018. Symptoms are moderate. Nothing makes the symptoms better or worse. She reports diffuse body aches and pains.[] (MICAH CHAMBERS DO) Review of Systems Review of Systems Constitutional: Denies fever or chills [] Eyes: Denies change in visual acuity, redness, or eye pain [] HENT: Denies nasal congestion or sore throat [] Respiratory: Denies cough or shortness of breath [] Cardiovascular: No additional information not addressed in HPI [] GI: See history of present illness[] : Denies dysuria or hematuria [] Musculoskeletal: Denies back pain or joint pain [] Integument: Denies rash or skin lesions [] Neurologic: Denies headache, focal weakness or sensory changes [] Endocrine: Denies polyuria or polydipsia [] All other systems were reviewed and found to be within normal limits, except as documented in this note. (MICAH CHAMBERS DO) Allergies Allergies Allergies Coded Allergies Type Severity Reaction Last Updated Verified No Known Drug Allergies 05/21/19 No (MICAH CHAMBERS DO) Physical Exam Physical Exam Constitutional: Well developed, well nourished, no acute distress, non-toxic appearance. [] HENT: Normocephalic, atraumatic, bilateral external ears normal, oropharynx moist, no oral exudates, nose normal. [] Eyes: PERRLA, EOMI, conjunctiva normal, no discharge. [] Neck: Normal range of motion, no tenderness, supple, no stridor. [] Cardiovascular:Heart rate is tachycardic with a regular rhythm, no murmur [] Lungs & Thorax: Bilateral breath sounds clear to auscultation [] Abdomen: Bowel sounds normal, soft, no tenderness, fundus is above the umbilicus, heart tones are in the 140s, no pulsatile masses. [] Skin: Warm, dry, no erythema, no rash. [] Back: No tenderness, no CVA tenderness. [] Extremities: No tenderness, no cyanosis, no clubbing, ROM intact, no edema. [] Neurologic: Alert and oriented X 3, normal motor function, normal sensory func tion, no focal deficits noted. [] Psychologic: Affect normal, judgement normal, mood normal. [] ([facility]) Current Patient Data Vital Signs Vital Signs Date Time Temp Pulse Resp B/P (MAP) Pulse Ox O2 Delivery O2 Flow Rate FiO2 05/21/19 17:07 98.6 117 18 100 Room Air [facility] EKG EKG [] [facility] Radiology/Procedures Radiology/Procedures [] ([facility] Course & Med Decision Making Course & Med Decision Making Pertinent Labs and Imaging studies reviewed. (See chart for details) Emergency department course: Patient arrived, was placed in bed, and tolerated exam well. IV access was established and she was given IV fluids and antiemetics. Patient care was endorsed to the nighttime physician at 1800 with laboratory tests as well as interventions in process.[] ([facility] Course & Med Decision Making Patient's labs are significant for slightly over a white count 12.3. Her urinalysis does show ketones, but no glucose or signs of infection. Blood sugar is greater than 200. She will follow up on these with her OB. We will do a by mouth challenge to see if the patient can stay hydrated orally. I gave the patient 4 mg of Zofran IV. She was able to keep down fluids without difficulty. I will discharge her with a prescription for the same. She will follow with her OB. I have also advised that if she needs further care prior to her delivery, she should consider going to the hospital where she will get so that they will have the available resources for labor. She is stable for discharge at this time. (LIDA KIDD DO) Dragon Disclaimer Dragon Disclaimer This electronic medical record was generated, in whole or in part, using a voice recognition dictation system. (MICAH CHAMBERS DO) Departure Departure: Impression: Primary Impression: Additional Impressions: Nausea & vomiting Hyperglycemia in Disposition: HOME, SELF-CARE Condition: STABLE Referrals: PCP,UNKNOWN (PCP) Patient Instructions: Nausea and Vomiting, [id number] Scripts Ondansetron (ONDANSETRON ODT) 4 Mg Tab.rapdis 1 TAB PO PRN Q6-8HRS PRN for VOMITING, #16 TAB Prov: LIDA KIDD DO 05/21/19 Problem Qualifiers Primary Impression: Weeks of gestation: 23 weeks Qualified Codes: Z3A.23 - 23 weeks gestation of Additional Impressions: Nausea & vomiting Vomiting type: unspecified Vomiting Intractability: non-intractable Qualified Codes: R11.2 - Nausea with vomiting, unspecified MICAH CHAMBERS DO May 21, 2019 17:39 LIDA KIDD DO May 21, 2019 20:07
[2019-05-21 17:56] LABS: BASO % 0 % (0-3); EOS % 0 % (0-3); HEMATOCRIT 35.6 % (36.0-47.0); HEMOGLOBIN 11.7 g/dL (12.0-15.5); LYMPH # 0.3 x10^3/uL (1.0-4.8); LYMPH % 2 % (24-48); MEAN CORPUSCULAR HEMOGLOBIN 29 pg (25-35); MEAN CORPUSCULAR HGB CONC 33 g/dL (31-37); MEAN CORPUSCULAR VOLUME 87 fL (79-100); MONO # 0.4 x10^3/uL (0.0-1.1); MONO % 3 % (0-9); NEUT # 11.6 x10^3uL (1.8-7.7); NEUT % 94 % (31-73); PLATELET COUNT 237 x10^3/uL (140-400); RED BLOOD COUNT 4.08 x10^6/uL (3.50-5.40); RED CELL DISTRIBUTION WIDTH 13.1 % (11.5-14.5); WHITE BLOOD COUNT 12.3 x10^3/uL (4.0-11.0)
[2019-05-21] MEDS: METOCLOPRAMIDE HCL 10 MG/2 ML VIAL. IV ONE (17:56)
[2019-05-21 17:59] VITALS: BP 104/54
[2019-05-21 19:15] LABS: COLOR,URINE YELLOW
[2019-05-21 19:16] LABS: BACTERIA,URINE FEW /HPF (0-FEW); BILIRUBIN,URINE NEG (NEG); CLARITY,URINE HAZY; GLUCOSE,URINE NEG (NEG); NITRITE,URINE NEG (NEG); RBC,URINE OCC /HPF (0-2); UROBILINOGEN,URINE 0.2 mg/dL (0.2 mg/dL); WBC,URINE OCC /HPF (0-4)
[2019-05-21 19:17] LABS: SQUAMOUS EPITHELIAL CELL,UR FEW /LPF
[2019-05-21 19:41] LABS: ALBUMIN 2.4 g/dL (3.4-5.0); ALBUMIN/GLOBULIN RATIO 0.8 (1.0-1.7); CALCIUM 7.4 mg/dL (8.5-10.1); CREATININE 0.7 mg/dL (0.6-1.0); GFR 103.7; POTASSIUM 3.7 mmol/L (3.5-5.1); TOTAL BILIRUBIN 0.3 mg/dL (0.2-1.0); TOTAL PROTEIN 5.5 g/dL (6.4-8.2)
[2019-05-21] MEDS: ONDANSETRON PF 4 MG/2 ML VIAL. IVP ONE (20:09)
[2019-05-21] MEDS ORDERED: ONDA4TAB12 PO (20:38)
== END 2019-05-21 20:45 | disposition home or self-care (01) ==
LOC: ER 17:00
DX: O21.9 Vomiting of pregnancy, unspecified (principal); O99.282 Endocrine, nutritional and metabolic diseases complicating pregnancy, second trimester; R73.9 Hyperglycemia, unspecified; R19.7 Diarrhea, unspecified; O99.332 Smoking (tobacco) complicating pregnancy, second trimester; Z3A.23 23 weeks gestation of pregnancy
CPT/HCPCS: 36415; 80053; 81001; 83690; 85025; 96361; 96374; 96375; 99284; J2405; J2765; J7042

== ENCOUNTER 2019-09-24 18:56 | Emergency (ER) | payer OTHER ==
[~2019-09-24] VITALS: Ht 165.1 cm; Wt 77.2 kg
[~2019-09-24 18:56] MED LIST changes: +ONDA4TAB12 PO
--- NOTE | 2019-09-24 18:59 | PHYS DOC ---
Past History Past Medical History: Endometriosis, Ovarian Cyst, UTI, Other Additional Past Medical Histor: PCOS Past Surgical History: Cancer Surgery, Oophorectomy Additional Past Surgical Histo: CA removed from leg; wisdom teeth removed Smoking: Cigarettes, Less than 1pk/day Alcohol Use: None Drug Use: None General Adult HPI: HPI: ".. 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 Patient has been taking AZO, patient denies any history of STDs. Patient denies any unusual vaginal discharge. Did have a baby on August 26. There is no complications with delivery. Lifetime sex partners 1 female. No history of trauma. No use of bubble baths. No history immunosuppression. No history of TDY or recent travel outside the [place] area. Patient's partner she has no symptoms. Patient normally follows at [facility] for care. Pt.is not breast feeding. No episodes of ill contacts. Review of Systems: Review of Systems: Constitutional: Denies fever or chills Eyes: Denies change in visual acuity HENT: Denies nasal congestion or sore throat Respiratory: Denies cough or shortness of breath Cardiovascular: Denies chest pain or edema GI: Denies abdominal pain, nausea, vomiting, bloody stools or diarrhea : Complains of dysuria Musculoskeletal: Denies back pain or joint pain Integument: Denies rash Neurologic: Denies headache, focal weakness or sensory changes Endocrine: Denies polyuria or polydipsia Lymphatic: Denies swollen glands Psychiatric: Denies depression or anxiety Heart Score: Risk Factors: Risk Factors: DM, Current or recent (<one month) smoker, HTN, HLP, family history of CAD, obesity. Risk Scores: Score 0 - 3: 2.5% MACE over next 6 weeks - Discharge Home Score 4 - 6: 20.3% MACE over next 6 weeks - Admit for Clinical Observation Score 7 - 10: 72.7% MACE over next 6 weeks - Early Invasive Strategies Family History: Family History: Noncontributory Current Medications: Current Meds: See nursing for home meds Allergies: Allergies: Allergies Coded Allergies Type Severity Reaction Last Updated Verified No Known Drug Allergies 12/19/19 No Physical Exam: PE: Constitutional: Well developed, well nourished, no acute distress, non-toxic appearance. [] HENT: Normocephalic, atraumatic, bilateral external ears normal, oropharynx moist, no oral exudates, nose normal. [] Eyes: PERRLA, EOMI, conjunctiva normal, no discharge. [] Neck: Normal range of motion, no tenderness, supple, no stridor. [] Cardiovascular:Heart rate regular rhythm, no murmur [] Lungs & Thorax: Bilateral breath sounds equal apex with a few scattered wheezes on auscultation [] Abdomen: Bowel sounds normal, soft, no tenderness, no masses, no pulsatile masses. [] Denies vaginal discharge or lesions. Declines pelvic exam at this time. Skin: Warm, dry, no erythema, no rash. [] Back: No tenderness, no CVA tenderness. [] Extremities: No tenderness, no cyanosis, no clubbing, ROM intact, no edema. [] Neurologic: Alert and oriented X 3, normal motor function, normal sensory function, no focal deficits noted. [] Psychologic: Affect anxious l, judgement normal, mood normal. [] EKG: EKG: [] Radiology/Procedures: Radiology/Procedures: [] Course & Med Decision Making: Course & Med Decision Making Pertinent Labs and Imaging studies reviewed. (See chart for details) Patient push vitamin C drinks. Patient take Tylenol or IbuProfen for discomfort. Patient to follow-up pending urine cultures. Patient follow-up primary care. Impression: 1. UTI 2. Dysuria [] Dragon Disclaimer: Dragalfonzo Disclaimer: This electronic medical record was generated, in whole or in part, using a voice recognition dictation system. Departure Departure: Disposition: 01 HOME/RESIDENCE PRIOR TO ADM Condition: STABLE Referrals: PCP,NO (PCP) Scripts Ibuprofen (IBUPROFEN) 400 Mg Tablet 400 MG PO QIDPRN PRN for pain or fever, #120 TAB Prov: MILAN MARIN MD 09/24/19 Sulfamethoxazole/Trimethoprim (BACTRIM DS TABLET) 1 Each Tablet 1 TAB PO BID for uti for 7 Days, #14 TAB 0 Refills Prov: MILAN MARIN MD 09/24/19 Vladimir Disclaimer This chart was dictated in whole or in part using Voice Recognition software in a busy, high-work load, and often noisy Emergency Department environment. It may contain unintended and wholly unrecognized errors or omissions. Dragon Disclaimer This chart was dictated in whole or in part using Voice Recognition software in a busy, high-work load, and often noisy Emergency Department environment. It may contain unintended and wholly unrecognized errors or omissions. MILAN MARIN MD Sep 24, 2019 18:59
[2019-09-24 19:07] VITALS: BP 114/72
[2019-09-24 19:42] LABS: BARBITURATES NEG (NEG); BENZODIAZEPINES NEG (NEG); CANNABINOIDS NEG (NEG); COCAINE NEG (NEG); METHADONE NEG (NEG); OPIATES NEG (NEG); PHENCYCLIDINE NEG (NEG)
[2019-09-24 19:44] LABS: AMPHETAMINE/METHAMPHETAMINE POS (NEG)
[2019-09-24 19:52] LABS: CLARITY,URINE CLEAR
[2019-09-24 19:57] LABS: COLOR,URINE ORANGE
[2019-09-24 20:01] LABS: BACTERIA,URINE MOD /HPF (0-FEW); SQUAMOUS EPITHELIAL CELL,UR MANY /LPF
[2019-09-24] MEDS ORDERED: SULF1TAB24 PO (20:08)
[2019-09-24] MEDS ORDERED: IBUP400T18 PO (20:08)
[2019-09-24] MEDS: IBUPROFEN 600 MG TABLET. PO ONE (20:20)
[2019-09-24] MEDS: SMZ/TMP 800/160MG TABLET. PO ONE (20:20)
== END 2019-09-24 20:22 | disposition home or self-care (01) ==
LOC: ER 18:56
DX: O90.89 Other complications of the puerperium, not elsewhere classified (principal); N39.0 Urinary tract infection, site not specified; F17.210 Nicotine dependence, cigarettes, uncomplicated; R30.0 Dysuria; Z87.440 Personal history of urinary (tract) infections; Z90.722 Acquired absence of ovaries, bilateral
CPT/HCPCS: 36415; 80307; 81001; 81025; 87086; 99283

== ENCOUNTER 2020-01-16 11:12 | Emergency (ER) | payer OTHER ==
[~2020-01-16] VITALS: Ht 165.1 cm; Wt 77.2 kg
[~2020-01-16 11:12] MED LIST changes: +IBUP400T18 PO; +SULF1TAB24 PO
[2020-01-16 11:23] VITALS: BP 126/74
[2020-01-16] MEDS ORDERED: BUTALB/APAP/CAFEIN 50/325/40MG TABLET. PO ONE (11:45)
[2020-01-16] MEDS ORDERED: NEOMY/BACITR/POLYMYXIN OINT PACKET. TP ONE (11:45)
[2020-01-16] MEDS ORDERED: DEXAMETHASONE 4 MG TABLET PO ONE (11:45)
[2020-01-16] MEDS ORDERED: BUTA1TAB23 PO (11:48)
[2020-01-16] MEDS ORDERED: ORPH-16 PO (11:48)
[2020-01-16] MEDS ORDERED: PRED20TA PO (11:48)
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
== END 2020-01-16 12:08 | disposition home or self-care (01) ==
LOC: ER 11:12
DX: S80.211A Abrasion, right knee, initial encounter (principal); S90.411A Abrasion, right great toe, initial encounter; H93.11 Tinnitus, right ear; F17.210 Nicotine dependence, cigarettes, uncomplicated; Z87.440 Personal history of urinary (tract) infections; V47.6XXA Car passenger injured in collision with fixed or stationary object in traffic accident, initial encounter; Y93.89 Activity, other specified; Y92.488 Other paved roadways as the place of occurrence of the external cause; Y99.8 Other external cause status
CPT/HCPCS: 99283

== ENCOUNTER 2020-02-08 20:35 | Emergency (ER) | payer OTHER ==
[~2020-02-08] VITALS: Ht 165.1 cm; Wt 74.3 kg
[2020-02-08 20:35] VITALS: BP 108/69
[~2020-02-08 20:35] MED LIST changes: +BUTA1TAB23 PO; +ORPH-16 PO; +PRED20TA PO
--- NOTE | 2020-02-08 21:00 | PHYS DOC ---
Past History Past Medical History: Cancer, Endometriosis, Ovarian Cyst, UTI Additional Past Medical Histor: PCOS Past Surgical History: Cancer Surgery, Oophorectomy Additional Past Surgical Histo: CA removed from leg; wisdom teeth removed Smoking: Cigarettes, Less than 1pk/day Alcohol Use: None Drug Use: None Adult General Chief Complaint Chief Complaint: KNEE SWELLING HPI HPI Patient is a 24-year-old female who presents for right knee abscess. Patient was diagnosed with this by PCP on Saturday and prescribed antibiotics, she thinks Keflex. Patient was unable to pick these up on day of prescription is yet to take any of these. Nonetheless, pain in right anterior knee worsened prompting her to visit local urgent care who subsequently advised patient to seek evaluation at our ER. Patient reports ongoing constant focal pain to right anterior knee at site of abscess on inferior pole of patella. Reports mild increase in surrounding erythema. States she has been using warm compresses and trying to self express exudate out of pustular head daily and reports getting moderate amount of discharge out yesterday. Nonetheless, she presents here for pain control and further management of her abscess. She denies any fever, COVID-19 contact, or other concerning constitutional symptoms or motor or sensory changes per her own baseline Review of Systems Review of Systems Fourteen body systems of review of systems have been reviewed. See HPI for pertinent positives and negative responses, other ornelas all other systems are negative, non-pertinent or non-contributory Allergies Allergies Allergies Coded Allergies Type Severity Reaction Last Updated Verified No Known Drug Allergies 05/21/19 No Physical Exam Physical Exam Constitutional: Well developed, well nourished, no acute distress, non-toxic appearance. HENT: Normocephalic, atraumatic, bilateral external ears normal, oropharynx moist, no oral exudates, nose normal. Eyes: PERRLA, EOMI, conjunctiva normal, no discharge. Neck: Normal range of motion, no tenderness, supple, no stridor. Cardiovascular: Heart rate regular per monitor Lungs & Thorax: Bilateral chest rise Abdomen: Soft, no tenderness, no masses, no pulsatile masses. Nonsurgical abdomen, no peritoneal signs Skin: Warm, dry, no rash. Pustular head present on inferior aspect of right patellar pole of right lower extremity with mild ring of erythema total diameter approximately 3 cm with x1 pustular head. No palpable or expressible exudate present, firmness and tender to palpation without obvious fluctuance Back: No tenderness, no CVA tenderness. Extremities: No tenderness, no cyanosis, no clubbing, ROM intact, no edema. Neurologic: Alert and oriented X 3, grossly normal motor & sensory function, no focal deficits noted. Psychologic: Affect normal, judgement normal, mood normal. EKG EKG [] Radiology/Procedures Radiology/Procedures [] Course & Med Decision Making Course & Med Decision Making Well-appearing ambulatory and nontoxic patient seen on immediate ER arrival ABCs non-concerning, patient afebrile Comprehensive history and physical examination obtained Discussed most likely diagnosis of simple abscess that does not meet indication for incision and drainage at this time Discussed importance of continued warm compresses, using NSAIDs and Tylenol for as needed pain control, and taking previously prescribed antibiotics 600 mg ibuprofen, 1 g Tylenol, and 500 mg Keflex administered prior to ER departure 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 Departure Departure: Impression: Primary Impression: Abscess of right knee Disposition: HOME/RESIDENCE PRIOR TO ADM Condition: STABLE Referrals: CECIL ALEXANDER (PCP) Justification of Admission: Justification of Admission: Justification of Admission Dx: N/A ROSA GARCIA DO Feb 08, 2020 21:00
[2020-02-08] MEDS ORDERED: CEPHALEXIN 250 MG CAPSULE ONE (21:04)
[2020-02-08] MEDS ORDERED: IBUPROFEN 600 MG TABLET. PO ONE ×2 (21:04→21:15)
[2020-02-08] MEDS ORDERED: ACETAMINOPHEN 500 MG TABLET PO ONE ×2 (21:04→21:15)
[2020-02-08] MEDS ORDERED: CEPHALEXIN 250 MG CAPSULE PO ONE (21:15)
== END 2020-02-08 21:15 | disposition home or self-care (01) ==
LOC: ER 20:35
DX: L02.415 Cutaneous abscess of right lower limb (principal); F17.210 Nicotine dependence, cigarettes, uncomplicated; Z87.440 Personal history of urinary (tract) infections
CPT/HCPCS: 99284

== ENCOUNTER 2021-02-24 12:49 | Emergency (ER) | payer OTHER ==
[~2021-02-24] VITALS: Ht 165.1 cm; Wt 80.5 kg
[2021-02-24] MEDS ORDERED: LIDOCAINE 1% PF 30 ML VIAL. INJ ONE (14:00)
[2021-02-24] MEDS ORDERED: SULF1TAB24 PO (14:08)
--- NOTE | 2021-02-24 14:08 | PHYS DOC ---
Past History Past Medical History: Cancer, Endometriosis, Ovarian Cyst, UTI Additional Past Medical Histor: PCOS (ANGELA RAMÍREZ APRN) Past Surgical History: Oophorectomy, Other Additional Past Surgical Histo: wisdom teeth (ANGELA RAMÍREZ APRN) Smoking: Cigarettes, Less than 1pk/day Alcohol Use: None Drug Use: None (ANGELA RAMÍREZ APRN) General Adult EDM: Chief Complaint: SKIN RASH/ABSCESS HPI: HPI: Patient is a 25-year-old female who presents with abscess to her upper back. Patient rating pain 6/10. Denies fever. Denies taking anything for discomfort prior to arrival. (ANGELA RAMÍREZ APRN) Review of Systems: Review of Systems: ROS At least 10 ROS systems have been reviewed and are negative except as documented in the HPI. General: Negative except as outlined in HPI above. Skin: Negative except as outlined in HPI above. HEENT: Negative except as outlined in HPI above. Neck: Negative except as outlined in HPI above. Respiratory: Negative except as outlined in HPI above.. Cardiovascular: Negative except as outlined in HPI above. Abdomen: Negative except as outlined in HPI above. : Negative except as outlined in HPI above. Back/MSK: Negative except as outlined in HPI above. Neuro: Negative except as outlined in HPI above. Psych: Negative except as outlined in HPI above. (ANGELA RAMÍREZ APRN) Current Medications: Current Meds: Current Medications Medications (Trade) Dose Ordered Sig/Colt Start Time Stop Time Status Last Admin Dose Admin Lidocaine HCl (Lidocaine 1% Pf) 30 ml 1X ONCE 02/24/21 14:00 02/24/21 14:01 DC (ANGELA RAMÍREZ APRN) Allergies: Allergies: Allergies Coded Allergies Type Severity Reaction Last Updated Verified No Known Drug Allergies 02/24/21 No (ANGELA RAMÍREZ APRN) Physical Exam: PE: Constitutional: Well developed, well nourished, no acute distress, non-toxic appearance. [] HENT: Normocephalic, atraumatic, bilateral external ears normal, oropharynx moist, no oral exudates, nose normal. [] Eyes: PERRLA, EOMI, conjunctiva normal, no discharge. [] Neck: Normal range of motion, no tenderness, supple, no stridor. [] Cardiovascular:Heart rate regular rhythm, no murmur [] Lungs & Thorax: Bilateral breath sounds clear to auscultation [] Abdomen: Bowel sounds normal, soft, no tenderness, no masses, no pulsatile masses. [] Skin: Abscess to left upper back, tenderness, no drainage Back: No tenderness, no CVA tenderness. [] Extremities: No tenderness, no cyanosis, no clubbing, ROM intact, no edema. [] Neurologic: Alert and oriented X 3, normal motor function, normal sensory function, no focal deficits noted. [] Psychologic: Affect normal, judgement normal, mood normal. [] (ANGELA RAMÍREZ APRN) Current Patient Data: Vital Signs: Vital Signs Date Time Temp Pulse Resp B/P (MAP) Pulse Ox O2 Delivery O2 Flow Rate FiO2 02/24/21 13:02 98.5 106 18 110/82 (91) 100 Room Air (ANGELA RAMÍREZ APRN) EKG: EKG: [] (ANGELA RAMÍREZ APRN) Radiology/Procedures: Radiology/Procedures: [] (ANGELA RAMÍREZ APRN) Heart Score: C/O Chest Pain: No Risk Factors: Risk Factors: DM, Current or recent (<one month) smoker, HTN, HLP, family history of CAD, obesity. Risk Scores: Score 0 - 3: 2.5% MACE over next 6 weeks - Discharge Home Score 4 - 6: 20.3% MACE over next 6 weeks - Admit for Clinical Observation Score 7 - 10: 72.7% MACE over next 6 weeks - Early Invasive Strategies (ANGELA RAMÍREZ APRN) Course & Med Decision Making: Course & Med Decision Making Pertinent Labs and Imaging studies reviewed. (See chart for details) [] 25 we will presents with abscess to her upper back. Pain is 6/10. No drainage from abscess. No signs of infection. Afebrile. (ANGELA RAMÍREZ APRN) Dragon Disclaimer: Dragon Disclaimer: This electronic medical record was generated, in whole or in part, using a voice recognition dictation system. (ANGELA RAMÍREZ APRN) Incision and Drainage Indication: Abscess on upper back Procedure: The patient was positioned appropriately and the skin over the incision site was cleaned with iodine. Local anesthesia was administered to the abscess. An incision was then made over the upper back and drainage material was expressed.The patients tetanus status was updated The patient tolerated the procedure well Complications: None (ANGELA RAMÍREZ APRN) Departure Departure: Impression: Primary Impression: Abscess Disposition: HOME / SELF CARE / HOMELESS Condition: STABLE Referrals: CECIL ALEXANDER (PCP) Patient Instructions: Abscess, Care After Additional Instructions: You were seen in the emergency room for abscess to your upper back. Your abscess was drained. Please follow-up with your PCP to have a wound check in 24 to 48 hours. Please watch for signs of infection. You can take Tylenol or Motrin for discomfort. I am also starting you on an antibiotic to help prevent infection. Take antibiotic as directed and in full. EMERGENCY DEPARTMENT GENERAL DISCHARGE INSTRUCTIONS Thank you for coming to [facility] (ED) today and trusting us with you care. We trust that you had a positivie experience in our Emergency Department. If you wish to speak to the department management, you may call the director at [phone]. YOUR FOLLOW UP INSTRUCTIONS ARE FOLLOWS: 1. Do you have a private Doctor? If you do not have a private doctor, please ask for a resource list of physicians or clinics that may be able to assist you with follow up care. 2. The Emergency Physician has interpreted your x-rays. The X-Ray specialist will also review them. If there is a change in the findings, you will be notified in 48 hours when at all possible. 3. A lab test or culture has been done, your results will be reviewed and you will be notified if you need a change in treatment. ADDITIONAL INSTRUCTIONS AND INFORMATION: 1. Your care today has been supervised by a physician who is specially trained in emergency care. Many problems require more than one evaluation for a complete diagnosis and treatment. We recommend that you schedule your follow up appointment as recommended to ensure complete treatment of you illness or injury. If you are unable to obtain follow up care and continue to have a problem, or if your condition worsens, we recommend that you return to the ED. 2. We are not able to safely determine your condition over the phone nor are we able to give sound medical advice over the phone. For these safety reasons, if you call for medical advice we will ask you to come to the ED for further evaluation. 3. If you have any questions regarding these discharge instructions please call the ED at [phone]. SAFETY INFORMATION: In the interest of safety, wellness, and injury prevention; we encourage you to wear your sealbelt, if you smoke; quite smoking, and we encourage family to use a protective helmet for bicycling and other sporting events that present an increased risk for head injury. IF YOUR SYMPTOMS WORSEN OR NEW SYMPTOMS DEVELOP, OR YOU HAVE CONCERNS ABOUT YOUR CONDITION; OR IF YOUR CONDITION WORSENS WHILE YOU ARE WAITING FOR YOUR FOLLOW UP APPOINTMENT; EITHER CONTACT YOUR PRIMARY CARE DOCTOR, THE PHYSICIAN WHOSE NAME AND NUMBER YOU WERE GIVEN, OR RETURN TO THE ED IMMEDIATELY. Scripts Sulfamethoxazole/Trimethoprim (BACTRIM DS TABLET) 1 Each Tablet 1 TAB PO BID for ABSCESS for 7 Days, #14 TAB 0 Refills Prov: ANGELA RAMÍREZ APRN 02/24/21 Attending Signature Attending Signature I have reviewed the PA/NURSING PROGRAM DIRECTOR's note and plan of care. I was available for con sultation as needed during the patient's visit in the emergency department. I agree with the clinical impression, plan, and disposition. (KAR ZAFAR DO) ANGELA RAMÍREZ APRN Feb 24, 2021 14:08 KAR ZAFAR DO Feb 24, 2021 21:30
[2021-02-24] MEDS ORDERED: DIPH,PERTUSS(ACELL),TET VAC/PF 0.5 ML SYRINGE. VAX IM ONE (14:30)
[2021-02-24 15:00] VITALS: BP 120/81
== END 2021-02-24 15:17 | disposition home or self-care (01) ==
LOC: ER 12:49
DX: L02.212 Cutaneous abscess of back [any part, except buttock and flank] (principal); F17.210 Nicotine dependence, cigarettes, uncomplicated
CPT/HCPCS: 10060; 90471; 90715; 99283-25

== ENCOUNTER 2021-02-26 14:34 | Emergency (ER) | payer OTHER ==
[~2021-02-26] VITALS: Ht 165.1 cm; Wt 80.5 kg
[2021-02-26 14:44] VITALS: BP 115/74
--- NOTE | 2021-02-26 15:30 | PHYS DOC ---
Past History Past Medical History: Cancer, Endometriosis, Ovarian Cyst, UTI Additional Past Medical Histor: PCOS (ANGELA RAMÍREZ APRN) Past Surgical History: Oophorectomy, Other Additional Past Surgical Histo: wisdom teeth (ANGELA RAMÍREZ APRN) Smoking: Cigarettes, Less than 1pk/day Alcohol Use: None Drug Use: None (ANGELA RAMÍREZ APRN) General Adult EDM: Chief Complaint: WOUND CHECK HPI: HPI: Patient is a 25-year-old female who came in for wound check. Patient denies any issues with wound. Wound appears to be healing. No signs of infection. No pain. (ANGELA RAMÍREZ APRN) Review of Systems: Review of Systems: Constitutional: Denies fever or chills Eyes: Denies change in visual acuity HENT: Denies nasal congestion or sore throat Respiratory: Denies cough or shortness of breath Cardiovascular: Denies chest pain or edema GI: Denies abdominal pain, nausea, vomiting, bloody stools or diarrhea : Denies dysuria Musculoskeletal: Denies back pain or joint pain Integument: No redness to wound, no drainage Neurologic: Denies headache, focal weakness or sensory changes Endocrine: Denies polyuria or polydipsia Lymphatic: Denies swollen glands Psychiatric: Denies depression or anxiety (ANGELA RAMÍREZ APRN) Allergies: Allergies: Allergies Coded Allergies Type Severity Reaction Last Updated Verified No Known Drug Allergies 02/24/21 No (ANGELA RAMÍREZ APRN) Physical Exam: PE: Constitutional: Well developed, well nourished, no acute distress, non-toxic appearance. [] HENT: Normocephalic, atraumatic, bilateral external ears normal, oropharynx moist, no oral exudates, nose normal. [] Eyes: PERRLA, EOMI, conjunctiva normal, no discharge. [] Neck: Normal range of motion, no tenderness, supple, no stridor. [] Cardiovascular:Heart rate regular rhythm, no murmur [] Lungs & Thorax: Bilateral breath sounds clear to auscultation [] Abdomen: Bowel sounds normal, soft, no tenderness, no masses, no pulsatile masses. [] Skin: Warm, dry, no erythema, no rash. [] Back: No tenderness, no CVA tenderness. [] Extremities: No tenderness, no cyanosis, no clubbing, ROM intact, no edema. [] Neurologic: Alert and oriented X 3, normal motor function, normal sensory function, no focal deficits noted. [] Psychologic: Affect normal, judgement normal, mood normal. [] (ANGELA RAMÍREZ APRN) Current Patient Data: Vital Signs: Vital Signs Date Time Temp Pulse Resp B/P (MAP) Pulse Ox O2 Delivery O2 Flow Rate FiO2 02/26/21 14:44 98.6 96 18 115/74 (88) 97 (ANGELA RAMÍREZ APRN) EKG: EKG: [] (ANGELA RAMÍREZ APRN) Radiology/Procedures: Radiology/Procedures: [] (ANGELA RAMÍREZ APRN) Heart Score: C/O Chest Pain: No Risk Factors: Risk Factors: DM, Current or recent (<one month) smoker, HTN, HLP, family history of CAD, obesity. Risk Scores: Score 0 - 3: 2.5% MACE over next 6 weeks - Discharge Home Score 4 - 6: 20.3% MACE over next 6 weeks - Admit for Clinical Observation Score 7 - 10: 72.7% MACE over next 6 weeks - Early Invasive Strategies (ANGELA RAMÍREZ APRN) Course & Med Decision Making: Course & Med Decision Making Pertinent Labs and Imaging studies reviewed. (See chart for details) [] Referral female him for a wound check. No signs of infection, drainage. No pain to the area. Patient to take ibuprofen and Tylenol at home. Watch for signs of infection. Follow-up with PCP if needed. (ANGELA RAMÍREZ APRN) Dragon Disclaimer: Dragon Disclaimer: This electronic medical record was generated, in whole or in part, using a voice recognition dictation system. (ANGELA RAMÍREZ APRN) Attending Co-Sign The patient was seen and interviewed as well as examined at the bedside. The chart was reviewed. The case was discussed. Agree with the plan of care. (LIDA KIDD DO) Departure Departure: Impression: Primary Impression: Wound check, abscess Disposition: HOME / SELF CARE / HOMELESS Condition: STABLE Referrals: CECIL ALEXANDER (PCP) Patient Instructions: Wound Check Additional Instructions: EMERGENCY DEPARTMENT GENERAL DISCHARGE INSTRUCTIONS Thank you for coming to [facility] ([facility]) today and trusting us with you care. We trust that you had a positivie experience in our Emergency Department. If you wish to speak to the department management, you may call the director at [phone]. YOUR FOLLOW UP INSTRUCTIONS ARE FOLLOWS: 1. Do you have a private Doctor? If you do not have a private doctor, please ask for a resource list of physicians or clinics that may be able to assist you with follow up care. 2. The Emergency Physician has interpreted your x-rays. The X-Ray specialist will also review them. If there is a change in the findings, you will be notified in 48 hours when at all possible. 3. A lab test or culture has been done, your results will be reviewed and you will be notified if you need a change in treatment. ADDITIONAL INSTRUCTIONS AND INFORMATION: 1. Your care today has been supervised by a physician who is specially trained in emergency care. Many problems require more than one evaluation for a complete diagnosis and treatment. We recommend that you schedule your follow up appointment as recommended to ensure complete treatment of you illness or injury. If you are unable to obtain follow up care and continue to have a problem, or if your condition worsens, we recommend that you return to the ED. 2. We are not able to safely determine your condition over the phone nor are we able to give sound medical advice over the phone. For these safety reasons, if you call for medical advice we will ask you to come to the ED for further evaluation. 3. If you have any questions regarding these discharge instructions please call the ED at [phone]. SAFETY INFORMATION: In the interest of safety, wellness, and injury prevention; we encourage you to wear your sealbelt, if you smoke; quite smoking, and we encourage family to use a protective helmet for bicycling and other sporting events that present an increased risk for head injury. IF YOUR SYMPTOMS WORSEN OR NEW SYMPTOMS DEVELOP, OR YOU HAVE CONCERNS ABOUT YOUR CONDITION; OR IF YOUR CONDITION WORSENS WHILE YOU ARE WAITING FOR YOUR FOLLOW UP APPOINTMENT; EITHER CONTACT YOUR PRIMARY CARE DOCTOR, THE PHYSICIAN WHOSE NAME AND NUMBER YOU WERE GIVEN, OR RETURN TO THE ED IMMEDIATELY. ANGELA RAMÍREZ APRN Feb 26, 2021 15:30 LIDA KIDD DO Feb 27, 2021 15:47
== END 2021-02-26 15:45 | disposition home or self-care (01) ==
LOC: ER 14:34
DX: Z48.01 Encounter for change or removal of surgical wound dressing (principal); L02.212 Cutaneous abscess of back [any part, except buttock and flank]; F17.210 Nicotine dependence, cigarettes, uncomplicated; Z87.440 Personal history of urinary (tract) infections
CPT/HCPCS: 99282

== ENCOUNTER 2021-03-18 19:42 | Emergency (ER) | payer OTHER ==
[~2021-03-18] VITALS: Ht 165.1 cm; Wt 80.5 kg
--- NOTE | 2021-03-18 19:47 | PHYS DOC ---
Past History Past Medical History: Anxiety, Cancer, Endometriosis, Ovarian Cyst, UTI Additional Past Medical Histor: PCOS Past Surgical History: Oophorectomy, Other Additional Past Surgical Histo: wisdom teeth Smoking: Cigarettes, Less than 1pk/day Alcohol Use: None Drug Use: None General Adult HPI: HPI: ".. I worried. ..and got a bad umbilical hernia... 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 Patient localizes pain at the area of her umbilical hernia. Does have a small hernia at this area but does not appear to contain bowel loops. Patient denies any history of trauma. No history immunosuppression. No history of travel. Has completed COVID vaccination x1 Has passed stools and gas today without problem. Patient has past medical history of endometriosis, ovarian cyst, UTIs, cervical dysplasia, oophorectomy,. No history of fever or chills. Did eat meals today. Last meal approximately 1/2 hours ago. Patient normally healthy. No history immunosuppression. Does use tobacco. She is 1/ term l, up-to-date vaccinations. No recent travel. No specific ill contacts. No recent overseas assignments. Review of Systems: Review of Systems: Constitutional: Denies fever or chills Eyes: Denies change in visual acuity HENT: Denies nasal congestion or sore throat Respiratory: Denies cough or shortness of breath Cardiovascular: Denies chest pain or edema GI: Complains of localized umbilicus hernia abdominal pain,. Denies nausea, vomiting, bloody stools or diarrhea : Denies dysuria Musculoskeletal: Denies back pain or joint pain Integument: Denies rash Neurologic: Denies headache, focal weakness or sensory changes Endocrine: Denies polyuria or polydipsia Lymphatic: Denies swollen glands Psychiatric: Denies depression or anxiety Family History: Family History: Noncontributory to presentation Current Medications: Current Meds: See nursing for home meds Allergies: Allergies: Allergies Coded Allergies Type Severity Reaction Last Updated Verified No Known Drug Allergies 02/24/21 No Physical Exam: PE: Constitutional: Well developed, well nourished, moderate acute distress, non- toxic appearance. [] HENT: Normocephalic, atraumatic, bilateral external ears normal, oropharynx moist, no oral exudates, nose normal. [] Eyes: PERRLA, EOMI, conjunctiva normal, no discharge. [] Neck: Normal range of motion, no tenderness, supple, no stridor. [] Cardiovascular: Tachycardia heart rate regular rhythm, no murmur [] bedside monitor shows a sinus tachycardia with no acute morphology. Lungs & Thorax: Bilateral breath sounds equal apex with scattered wheezes auscultation [] Abdomen: Bowel sounds normal, soft, localized tenderness at site of a small umbilical hernia,, no masses, no pulsatile masses. Old surgery scars. Mild rebound to the umbilical area. Skin: Warm, dry, no erythema, no rash. [] Back: No tenderness, no CVA tenderness. [] Extremities: No tenderness, no cyanosis, no clubbing, ROM intact, no edema.. No psoas sign Neurologic: Alert and oriented X 3, normal motor function, normal sensory function, no focal deficits noted. [] Psychologic: Affect anxious, judgement normal, mood normal. [] EKG: EKG: My interpretation EKG shows a sinus rhythm at 96 bpm no acute morphology. Time of EKG is 2024 hrs. [] Radiology/Procedures: Radiology/Procedures: [][place] [id number] IMAGING REPORT Signed PATIENT: PARVEZ LIN MACCOUNT: [id number] : 1995 LOCATION: ER AGE: 25 SEX: F EXAM STATUS: REG ER ORD. PHYSICIAN: MILAN MARIN MD REASON: Hx. umbilicus hernia- pain, Incarcerated?- prior episodes, PROCEDURE: CT ABD PELV W/ORAL&IV CONTRAST Exam: CT of abdomen and pelvis with contrast INDICATION: Umbilical hernia TECHNIQUE: Sequential axial images through the abdomen and pelvis obtained following the administration of 75 mL of Isovue-370 IV contrast. Sagittal and coronal reformatted images were reconstructed from the axial data and reviewed. Exposure: One or more of the following in the visualized dose reduction techniques were utilized for this examination: 1. Automated exposure control 2. Adjustment of the MA and/or KV according to patient size 3. Use of iterative of reconstructive technique Comparisons: Radiograph same day FINDINGS: Heart size is normal. No pericardial effusion. Visualized lung bases are clear. No pleural effusion. Liver, spleen, pancreas, gallbladder and adrenals are unremarkable. No perinephric inflammation or hydronephrosis. Nonobstructing calculus at the lower pole left kidney. No ureteral calculi are identified. Bladder is decompressed not well evaluated. Uterus is not enlarged. Is a cystic lesion at the left adnexa which measures 4.3 cm with layering debris. Large and small bowel are unremarkable. No free intra-abdominal air or fluid. No obstruction. Appendix is normal. Abdominal aorta has a normal course and caliber. Abdominal vasculature is patent. No enlarged intra-abdominal lymph nodes are identified. No suspicious osseous lesions or acute fractures. Small fat-containing umbilical hernia. IMPRESSION: 1. Small fat-containing umbilical hernia. No evidence for obstruction. 2. Cystic lesion at the left adnexa measuring 4.3 cm, may represent a hemorrhagic cyst given layering debris however this is incompletely characterized on CT. Electronically signed by: Bill Moise MD (03/18/2021 11:32 PM) [facility] DICTATED AND SIGNED BY: BILL MOISE MD DATE: 03/18/212326 CC: CECIL ALEXANDER; MILAN MARIN MD ~MTH0 [address] [place] [address] IMAGING REPORT Signed PATIENT: PARVEZ LIN MACCOUNT: [id number] : 1995 LOCATION: ER AGE: 25 SEX: F EXAM STATUS: REG ER ORD. PHYSICIAN: MILAN MARIN MD REASON: pain, umbilicus hernia PROCEDURE: ACUTE ABDOMEN SERIES Exam: Acute abdominal series INDICATION: Pain, umbilical hernia TECHNIQUE: Frontal view of chest with upright and supine views of the abdomen Comparisons: None FINDINGS: The cardiomediastinal silhouette and pulmonary vessels are within normal limits. The lung and pleural spaces are clear. Air and stool are noted throughout the colon to level the rectum in a nonobstructive bowel gas pattern. No suspicious masses or calcifications. Visualized osseous structures are unremarkable. IMPRESSION: 1. No acute cardiopulmonary process. 2. Nonobstructive bowel gas pattern. Electronically signed by: Bill Moise MD (03/18/2021 10:16 PM) [facility] DICTATED AND SIGNED BY: BILL MOISE MD DATE: 03/18/212214 CC: CECIL ALEXANDER; MILAN MARIN MD ~MTH0 0 Heart Score: C/O Chest Pain: No HEART Score for Chest Pain: HEART Score for Chest Pain Response (Comments) Value History Slighlty/Non-Suspicious 0 ECG Normal 0 Age < 45 0 Risk Factors 1 or 2 Risk Factors 1 Troponin < Normal Limit 0 Total 1 Risk Factors: Risk Factors: DM, Current or recent (<one month) smoker, HTN, HLP, family history of CAD, obesity. Risk Scores: Score 0 - 3: 2.5% MACE over next 6 weeks - Discharge Home Score 4 - 6: 20.3% MACE over next 6 weeks - Admit for Clinical Observation Score 7 - 10: 72.7% MACE over next 6 weeks - Early Invasive Strategies Course & Med Decision Making: Course & Med Decision Making Pertinent Labs and Imaging studies reviewed. (See chart for details) Patient stay on clear fluid diet for the next 48 hours. No solids. No milk products. Allow bowel rest. Patient was given a dose of milk of mag at the discharge. Patient follow-up with primary care. Suspect has necrotic changes of fat contained in the small umbilical hernia. No concern for acute surgical process at this time. Take Tylenol and ibuprofen for pain return if any concerns. Patient issued a disc of her CT. Follow-up with [facility]. Impression: 1. Umbilical hernia containing fat 2. Left adnexal cystic 4.3 cm 3. Hematuria 4. Drug screen- Possible + Amphetamine/ Meth- type substance. 5. Mild constipation [] Dragon Disclaimer: Dragalfonzo Disclaimer: This electronic medical record was generated, in whole or in part, using a voice recognition dictation system. Departure Departure: Referrals: CECIL ALEXANDER (PCP) Vladimir Disclaimer This chart was dictated in whole or in part using Voice Recognition software in a busy, high-work load, and often noisy Emergency Department environment. It may contain unintended and wholly unrecognized errors or omissions. MILAN MARIN MD Mar 18, 2021 19:47
[2021-03-18] MEDS ORDERED: IV RINGERS SOLUTION,LACTATED 1,000 ML IV SCH (20:00)
[2021-03-18] MEDS ORDERED: KETOROLAC 30 MG/ML VIAL. IVP ONE (20:30)
[2021-03-18] MEDS ORDERED: FAMOTIDINE 20 MG/2 ML VIAL IVP ONE (20:30)
[2021-03-18] MEDS ORDERED: ONDANSETRON PF 4 MG/2 ML VIAL. IVP ONE (20:30)
[2021-03-18 20:56] LABS: BASO % 0 % (0-3); EOS % 0 % (0-3); HEMATOCRIT 38.4 % (36.0-47.0); HEMOGLOBIN 12.5 g/dL (12.0-15.5); LYMPH # 2.5 x10^3/uL (1.0-4.8); LYMPH % 28 % (24-48); MEAN CORPUSCULAR HEMOGLOBIN 27 pg (25-35); MEAN CORPUSCULAR HGB CONC 33 g/dL (31-37); MEAN CORPUSCULAR VOLUME 83 fL (79-100); MONO # 0.6 x10^3/uL (0.0-1.1); MONO % 7 % (0-9); NEUT # 5.6 x10^3uL (1.8-7.7); NEUT % 64 % (31-73); PLATELET COUNT 241 x10^3/uL (140-400); RED BLOOD COUNT 4.65 x10^6/uL (3.50-5.40); RED CELL DISTRIBUTION WIDTH 16.1 % (11.5-14.5); WHITE BLOOD COUNT 8.7 x10^3/uL (4.0-11.0)
--- NOTE | 2021-03-18 21:03 | EKG ---
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
[2021-03-18 21:04] LABS: CALCIUM 9.2 mg/dL (8.5-10.1); CREATININE 0.8 mg/dL (0.6-1.0); GFR 88.1; POTASSIUM 3.3 mmol/L (3.5-5.1)
[2021-03-18 21:10] LABS: ALBUMIN 4.2 g/dL (3.4-5.0); DIRECT BILIRUBIN 0.1 mg/dL (0.0-0.2); TOTAL BILIRUBIN 0.5 mg/dL (0.2-1.0); TOTAL PROTEIN 7.5 g/dL (6.4-8.2)
[2021-03-18 21:28] LABS: AMPHETAMINE/METHAMPHETAMINE POS (NEG); BARBITURATES NEG (NEG); BENZODIAZEPINES NEG (NEG); CANNABINOIDS NEG (NEG); COCAINE NEG (NEG); METHADONE NEG (NEG); OPIATES NEG (NEG); PHENCYCLIDINE NEG (NEG)
[2021-03-18 21:31] LABS: SQUAMOUS EPITHELIAL CELL,UR FEW /LPF
[2021-03-18 21:32] LABS: BACTERIA,URINE FEW /HPF (0-FEW)
[2021-03-18 21:33] LABS: BILIRUBIN,URINE NEG (NEG); CLARITY,URINE HAZY; COLOR,URINE YELLOW; GLUCOSE,URINE NEG (NEG); NITRITE,URINE NEG (NEG); UROBILINOGEN,URINE 0.2 mg/dL (0.2 mg/dL)
[2021-03-18 21:34] LABS: RBC,URINE 20-40 /HPF (0-2)
--- NOTE | 2021-03-18 22:19 | RAD ---
Exam: Acute abdominal series INDICATION: Pain, umbilical hernia TECHNIQUE: Frontal view of chest with upright and supine views of the abdomen Comparisons: None FINDINGS: The cardiomediastinal silhouette and pulmonary vessels are within normal limits. The lung and pleural spaces are clear. Air and stool are noted throughout the colon to level the rectum in a nonobstructive bowel gas patter n. No suspicious masses or calcifications. Visualized osseous structures are unremarkable. IMPRESSION: 1. No acute cardiopulmonary process. 2. Nonobstructive bowel gas pattern. Electronically signed by: Bill Bhandari MD (03/18/2021 10:16 PM) [facility]
[2021-03-18] MEDS ORDERED: IOHEXOL 240 MG/ML 50ML VIAL. PO ONE (23:00)
[2021-03-18] MEDS ORDERED: CONTRAST GIVEN. MC PRN (23:00)
[2021-03-18] MEDS ORDERED: IOHEXOL 300 MG/ML 75 ML VIAL. IV ONE (23:00)
--- NOTE | 2021-03-18 23:34 | RAD ---
Exam: CT of abdomen and pelvis with contrast INDICATION: Umbilical hernia TECHNIQUE: Sequential axial images through the abdomen and pelvis obtained following the administrati on of 75 mL of Isovue-370 IV contrast. Sagittal and coronal reformatted images were reconstructed fro m the axial data and reviewed. Exposure: One or more of the following in the visualized dose reduction techniques were utilized for this examination: 1. Automated exposure control 2. Adjustment of the MA and/or KV according to patient size 3. Use of iterative of reconstructive technique Comparisons: Radiograph same day FINDINGS: Heart size is normal. No pericardial effusion. Visualized lung bases are clear. No pleural effusion. Liver, spleen, pancreas, gallbladder and adrenals are unremarkable. No perinephric inflammation or hydronephrosis. Nonobstructing calculus at the lower pole left kidney. No ureteral calculi are identified. Bladder is decompressed not well evaluated. Uterus is not enlarged. Is a cystic lesion at the left ad nexa which measures 4.3 cm with layering debris. Large and small bowel are unremarkable. No free intr a-abdominal air or fluid. No obstruction. Appendix is normal. Abdominal aorta has a normal course and caliber. Abdominal vasculature is patent. No enlarged intra-abdominal lymph nodes are identified. No suspicious osseous lesions or acute fractures. Small fat-containing umbilical hernia. IMPRESSION: 1. Small fat-containing umbilical hernia. No evidence for obstruction. 2. Cystic lesion at the left adnexa measuring 4.3 cm, may represent a hemorrhagic cyst given layerin g debris however this is incompletely characterized on CT. Electronically signed by: Bill Bhandari MD (03/18/2021 11:32 PM) [facility]
[2021-03-19] MEDS ORDERED: MAGNESIUM HYDROXIDE 2,400 MG/30 ML ORAL.SUSP. PO ONE
[2021-03-19 00:23] VITALS: BP 123/88
== END 2021-03-19 00:22 | disposition home or self-care (01) ==
LOC: ER 19:42
DX: K42.9 Umbilical hernia without obstruction or gangrene (principal); C44.90 Unspecified malignant neoplasm of skin, unspecified; K59.00 Constipation, unspecified
CPT/HCPCS: 36415; 74022; 74177; 80048; 80076; 80307; 81001; 81025; 82150; 82550; 83690; 84484; 85025; 85610; 85730; 93005; 99285; Q9966; Q9967